=== PATIENT | female | born 1970 | race Hispanic/Latino ===

== ENCOUNTER 2020-04-09 18:43 | Inpatient (IN) | payer SELFPAY ==
[~2020-04-09] VITALS: Ht 167.6 cm; Wt 98.7 kg
--- NOTE | 2020-04-09 19:50 | Emergency Department Note ---
History of Present Illnes History of Present Illness Chief Complaint: General Medicine Complaints History of Present Illness This is a 49 year old female brought by EMS for anxiety. Patient requested a shot for "something". 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 Any updates have been documented here. Past Medical History Recent Fever: Yes Clinical Suspicion of Infectio: Yes New/Unexplained Change in Ment: No Past Medical History: Anxiety Social History Smoking Cessation: Never Smoker Alcohol Use: None Any Illegal Drug Use: No Review of Systems Review of Systems Constitutional: Reports malaise EENTM: Reports no symptoms Cardiovascular: Reports no symptoms Respiratory: Reports dyspnea Gastrointestinal: Reports no symptoms Genitourinary: Reports no symptoms Musculoskeletal: Reports no symptoms Integumentary: Reports no symptoms Neurological: Reports no symptoms Psychological: Reports no symptoms Endocrine: Reports no symptoms Hematological/Lymphatic: Reports no symptoms Physical Exam Related Data Allergies: Coded Allergies: No Known Allergies (Unverified , 04/09/20) Triage Vital Signs Vital Signs Date Time Temp Pulse Resp B/P (MAP) Pulse Ox O2 Delivery O2 Flow Rate FiO2 04/09/20 18:46 97.4 102 16 158/63 96 Room Air Vital signs reviewed: Yes Physical Exam CONSTITUTIONAL Constitutional: Present diaphoretic, Present ill appearing HENT HENT: Present normocephalic, Present atraumatic, Present oropharynx clear/moist, Present nose normal HENT L/R: Present left ext ear normal, Present right ext ear normal EYES Eyes: Reports PERRL, Reports conjunctivae normal NECK Neck: Present ROM normal PULMONARY Pulmonary: Present respiratory distress CARDIOVASCULAR Cardiovascular: Present heart sounds normal, Present tachycardia GASTROINTESTINAL Abdominal: Present soft, Present nontender, Present bowel sounds normal GENITOURINARY Genitourinary: Present exam deferred SKIN Skin: Present warm, Present dry MUSCULOSKELETAL Musculoskeletal: Present ROM normal NEUROLOGICAL Neurological: Present alert, Present oriented x 3, Present no gross motor or sensory deficits PSYCHOLOGICAL Psychological: Present mood/affect normal, Present judgement normal Results Laboratory Lab results reviewed: Yes Laboratory comments Laboratory Tests Test 04/10/20 03:50 04/10/20 00:35 04/10/20 00:15 04/09/20 23:55 Urine Color Yellow (YELLOW) Urine Clarity Sl cloudy (CLEAR) Urine pH 6 (5 - 7) Urine Specific Hamilton 1.025 (1.010-1.025) Urine Protein 2+ (NEGATIVE) Urine Glucose (UA) 2+ (NEGATIVE) Urine Ketones 3+ (NEGATIVE) Urine Blood Trace (NEGATIVE) Urine Nitrite Negative (NEGATIVE) Urine Bilirubin 1+ (NEGATIVE) Urine Urobilinogen 0.2 mg/dL (0.2 - 1) Urine Leukocyte Esterase Negative (NEGATIVE) Urine RBC 11-20 /HPF (0-5) Urine WBC 11-20 /HPF (0-5) Urine Epithelial Cells Few /LPF (NONE) Urine Bacteria Many /HPF (NONE) Urine Hyaline Casts 2-5 (0-1) Urine Coarse Granular Casts 1-5 (0) Urine Yeast Moderate (NONE) Lactic Acid Level 1.2 mmol/L (0.5-2.0) Urine Test Negative (NEGATIVE) Urine Opiates Screen Negative (NEGATIVE) Urine Methadone Screen Negative (NEGATIVE) Urine Barbiturates Screen Negative (NEGATIVE) Urine Phencyclidine Screen Negative (NEGATIVE) Urine Amphetamines Screen Negative (NEGATIVE) Urine Methamphetamines Screen Negative (NEGATIVE) Urine Benzodiazepines Screen Negative (NEGATIVE) Urine Cocaine Screen Negative (NEGATIVE) Urine Cannabinoids Screen Negative (NEGATIVE) Venous Blood pH 7.337 (7.35-7.38) Venous Blood Partial Pressure CO2 37.5 (44-48) Venous Blood Partial Pressure O2 21 (40-41) Venous Blood HCO3 20.1 (21-22) Venous Blood Oxygen Saturation 31 Venous Blood Base Excess -6 FiO2 36 % Test 04/09/20 22:50 White Blood Count 7.68 x10e3/uL (4.8-10.8) Red Blood Count 5.10 x10e6/uL (3.6-5.1) Hemoglobin 14.6 g/dL (12.0-16.0) Hematocrit 44.9 % (34.2-44.1) Mean Corpuscular Volume 88.0 fL (81-99) Mean Corpuscular Hemoglobin 28.6 pg (28-32) Mean Corpuscular Hemoglobin Concent 32.5 g/dL (31-35) Red Cell Distribution Width 13.0 % (11.7-14.4) Platelet Count 265 x10e3/uL (140-360) Neutrophils (%) (Auto) 79.9 % (38.7-80.0) Lymphocytes (%) (Auto) 14.7 % (18.0-39.1) Monocytes (%) (Auto) 4.6 % (4.4-11.3) Eosinophils (%) (Auto) 0.0 % (0.0-6.0) Basophils (%) (Auto) 0.1 % (0.0-1.0) Neutrophils # (Auto) 6.1 (2.1-6.9) Lymphocytes # (Auto) 1.1 (1.0-3.2) Monocytes # (Auto) 0.4 (0.2-0.8) Eosinophils # (Auto) 0.0 (0.0-0.4) Basophils # (Auto) 0.0 (0.0-0.1) Absolute Immature Granulocyte (auto 0.05 x10e3/uL (0-0.1) Sodium Level 137 mmol/L (136-145) Potassium Level 4.2 mmol/L (3.5-5.1) Chloride Level 101 mmol/L (98-107) Carbon Dioxide Level 19 mmol/L (22-29) Anion Gap 21.2 mmol/L (8-16) Blood Urea Nitrogen 9 mg/dL (7-26) Creatinine 0.82 mg/dL (0.57-1.11) Estimat Glomerular Filtration Rate > 60 ML/MIN (60-) BUN/Creatinine Ratio 11 (6-25) Glucose Level 286 mg/dL (74-118) Lactic Acid Level 2.4 mmol/L (0.5-2.0) Calcium Level 9.3 mg/dL (8.4-10.2) Total Bilirubin 0.3 mg/dL (0.2-1.2) Aspartate Amino Transf (AST/SGOT) 36 IU/L (5-34) Alanine Aminotransferase (ALT/SGPT) 32 IU/L (0-55) Alkaline Phosphatase 79 IU/L (40-150) Creatine Kinase 62 IU/L (29-168) Creatine Kinase MB 0.20 ng/mL (0-5.0) Troponin I 0.001 ng/mL (0-0.300) B-Type Natriuretic Peptide 10.9 pg/mL (0-100) Total Protein 7.8 g/dL (6.5-8.1) Albumin 2.8 g/dL (3.5-5.0) Globulin 5.0 g/dL (2.3-3.5) Albumin/Globulin Ratio 0.6 (0.8-2.0) Imaging Imaging results reviewed: Yes Impressions [place] [id number] Patient Name: MARCELO YOUNG MR #: [id number] 41 : 1970 Age/Sex: 49/F Req #: [id number] Adm Physician: Ordered by: BRYCE NEWMAN DO Report #: [id number] Location: ER Room/Bed: Procedure: [id number] DX/CHEST SINGLE (PORTABLE) Exam Date: 04/09/20 Exam Time: 2310 REPORT STATUS: Signed EXAMINATION: CHEST SINGLE (PORTABLE) INDICATION: Anxiety attack COMPARISON: None FINDINGS: TUBES and LINES: None. LUNGS: Normal lung volumes. Bilateral infrahilar/lower lung haziness. Mild central bronchial wall thickening. PLEURA: No pleural effusion or pneumothorax. HEART AND MEDIASTINUM: The cardiomediastinal silhouette is unremarkable. BONES AND SOFT TISSUES: No acute osseous lesion. Soft tissues are unremarkable. UPPER ABDOMEN: No free air under the diaphragm. IMPRESSION: Findings of bronchitis. Bilateral lower lung haziness is concerning for multifocal pneumonia, possibly viral. 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: Interpreted by ED physician Date: Apr 09, 2020 Time: 22:14 Prior ECG tracings: reviewed Rhythm: sinus tachycardia Rate: tachycardia BPM: 111 QRS axis: normal ST segments normal: Yes T waves normal: Yes Pacin% capture Clinical Impression: abnormal ECG Critical Care Time Total Critical Care Time (min): 31 Critcal care necessary due to: respiratory failure Critcal care time spent by me: develop tx plan w patient/surrogate, evaluation patient response to tx, examination of patient, order/perform tx or interve ntions, order/review laboratory studies, pulse oximetry, re-evaluation of patient condition Assessment & Plan Medical Decision Making MDM 49 yof presents with CP . ACS, PE, costocondritis, Chest wall pain, and pneumothorax, pneumonia and COVID-19 infectoin considered. labs, imaging, and EKG reviewed Assessment & Plan Final Impression: (1) Upper respiratory tract infection due to COVID-19 virus (2) Hypoxia Depart Disposition: ADMITTED Last Vital Signs Date Time Temp Pulse Resp B/P (MAP) Pulse Ox O2 Delivery O2 Flow Rate FiO2 04/09/20 18:46 97.4 102 16 158/63 96 Room Air Home Meds No Active Prescriptions or Reported Meds Medications in the ED Aspirin 81 mg PRN ONCE PO ; Start 04/09/20 at 22:15; Stop 04/09/20 at 22:23; Status DC Acetaminophen 975 mg ONCE STAT PO Last administered on 04/09/20at 22:35; Admin Dose 975 MG; Start 04/09/20 at 22:16; Stop 04/09/20 at 22:23; Status DC Piperacillin Sod/ Tazobactam Sod 50 ml @ 50 mls/hr Q6H IV Last administered on 04/10/20at 06:14; Admin Dose 50 MLS/HR; Start 04/10/20 at 00:00; Stop 04/10/20 at 08:06; Status DC Azithromycin 250 ml @ 200 mls/hr NOW ONCE IV Last administered on 04/10/20at 09:00; Admin Dose 200 MLS/HR; Start 04/10/20 at 07:30; Stop 04/10/20 at 08:44; Status DC Methylprednisolone Sodium Succinate 125 mg ONCE ONCE IV Last administered on 04/10/20at 09:00; Admin Dose 125 MG; Start 04/10/20 at 07:30; Stop 04/10/20 at 07:31; Status DC Albuterol RQ2H PRN INH SHORTNESS OF BREATH; Start 04/10/20 at 07:30; Stop 05/10/20 at 07:29; Status Cancel BRYCE NEWMAN DO Apr 09, 2020 19:50
[2020-04-09] MEDS ORDERED: ASPIRIN 81 MG CHEW TAB PO ONE (22:15)
[2020-04-09] MEDS: ACETAMINOPHEN 325 MG TAB PO STA ×2 (22:25→22:35)
[2020-04-09] MEDS: SODIUM CHLORIDE 0.9% 1000ML 1,000 ML IV STA ×2 (22:30→22:35)
[2020-04-09 23:22] LABS: BASOPHILS % 0.1 % (0.0-1.0); HEMATOCRIT 44.9 % (34.2-44.1); HEMOGLOBIN 14.6 g/dL (12.0-16.0); LYMPHOCYTES # (AUTO) 1.1 (1.0-3.2); LYMPHOCYTES % 14.7 % (18.0-39.1); MEAN CORPUSCULAR HEMOGLOBIN 28.6 pg (28-32); MEAN CORPUSCULAR HGB CONC 32.5 g/dL (31-35); MONOCYTES # (AUTO) 0.4 (0.2-0.8); MONOCYTES % 4.6 % (4.4-11.3); NEUTROPHILS # (AUTO) 6.1 (2.1-6.9); NEUTROPHILS % 79.9 % (38.7-80.0); PLATELET COUNT 265 x10e3/uL (140-360)
[2020-04-09] MEDS: PIPER-TAZ 3.375 GM 50 ML IV SCH (23:33)
[2020-04-09 23:43] LABS: ALANINE AMINOTRANSFERASE 32 IU/L (0-55); ALBUMIN 2.8 g/dL (3.5-5.0); ALBUMIN/GLOBULIN RATIO 0.6 (0.8-2.0); ALKALINE PHOSPHATASE 79 IU/L (40-150); ANION GAP 21.2 mmol/L (8-16); BLOOD UREA NITROGEN 9 mg/dL (7-26); BUN/CREATININE RATIO 11 (6-25); CALCIUM 9.3 mg/dL (8.4-10.2); CARBON DIOXIDE 19 mmol/L (22-29); CHLORIDE 101 mmol/L (98-107); CREATINE KINASE 62 IU/L (29-168); CREATININE, SERUM 0.82 mg/dL (0.57-1.11); EST GLOMERULAR FILTRATION RATE > 60 ML/MIN (60-); GLUCOSE 286 mg/dL (74-118); POTASSIUM 4.2 mmol/L (3.5-5.1); SODIUM 137 mmol/L (136-145)
[2020-04-10 00:45] LABS: PHENCYCLIDINE SCREEN,URINE NEGATIVE (NEGATIVE)
[2020-04-10 00:46] LABS: AMPHETAMINES SCREEN,URINE NEGATIVE (NEGATIVE); BENZODIAZEPINES SCREEN,URINE NEGATIVE (NEGATIVE); PREGNANCY TEST, URINE NEGATIVE (NEGATIVE)
--- NOTE | 2020-04-10 00:56 | Diagnostic Imaging Report ---
EXAMINATION: CHEST SINGLE (PORTABLE) INDICATION: Anxiety attack COMPARISON: None FINDINGS: TUBES and LINES: None. LUNGS: Normal lung volumes. Bilateral infrahilar/lower lung haziness. Mild central bronchial wall thickening. PLEURA: No pleural effusion or pneumothorax. HEART AND MEDIASTINUM: The cardiomediastinal silhouette is unremarkable. BONES AND SOFT TISSUES: No acute osseous lesion. Soft tissues are unremarkable. UPPER ABDOMEN: No free air under the diaphragm. IMPRESSION: Findings of bronchitis. Bilateral lower lung haziness is concerning for multifocal pneumonia, possibly viral. Signed by: Jorge Luis Dorman DO on 04/10/2020 12:52 AM
[2020-04-10 03:59] LABS: CLARITY,URINE SL CLOUDY (CLEAR); COLOR,URINE YELLOW (YELLOW); LEUKOCYTE ESTERASE ,URINE NEGATIVE (NEGATIVE); NITRITE,URINE NEGATIVE (NEGATIVE); PROTEIN,URINE DIPSTICK 2+ (NEGATIVE)
[2020-04-10 04:00] LABS: BILIRUBIN,URINE 1+ (NEGATIVE); KETONES,URINE 3+ (NEGATIVE); URINE UROBILINOGEN 0.2 mg/dL (0.2 - 1)
[2020-04-10 04:23] LABS: BACTERIA,URINE MANY /HPF; EPITHELIAL CELLS,URINE FEW /LPF
[2020-04-10 04:24] LABS: YEAST,URINE MODERATE
[2020-04-10] MEDS: PIPER-TAZ 3.375 GM 50 ML IV SCH (06:14)
[2020-04-10] MEDS ORDERED: AZITHROMYCIN 500MG/NS 250 ML 250 ML IV ONE (07:30)
[2020-04-10] MEDS ORDERED: METHYLPREDNISOLONE SOD SUCC 125 MG/2ML VIAL IV ONE (07:30)
[2020-04-10] MEDS ORDERED: ALBUTEROL SULFATE HFA 8GM INHALATION AEROSOL INH PRN ×2 (07:30→07:45)
[2020-04-10] MEDS ORDERED: CEFTRIAXONE SOD 1 GRAM/0.9% SOD CHL 50ML BAG IV SCH (07:45)
[2020-04-10] MEDS ORDERED: ASPIRIN 81 MG CHEW TAB PO ONE (07:45)
[2020-04-10] MEDS ORDERED: AZITHROMYCIN 500MG/SOD CHL 0.9% 250ML BAG IV SCH (07:45)
[2020-04-10] MEDS ORDERED: ACETAMINOPHEN 325 MG TAB PO ONE (07:45)
--- NOTE | 2020-04-10 08:37 | NUR ---
CHECKED WITH MD, PT TO BE PLACED ON VAPO THERM. CALLED RESPIRATORY FOR ORDER OF VAPO THERM STAT. HAD MAORI SPEAKING STAFF TALK WITH PT FOR UPDATE AND EVAL INFORMATION. PT PLACED ON WAFFLE
--- NOTE | 2020-04-10 08:46 | NUR ---
RESP RATE 44, BEING PLACED ON VAPO THERM
[2020-04-10] MEDS: SODIUM CHLORIDE 0.9% 1000ML 1,000 ML IV SCH ×3 (09:00→20:40)
[2020-04-10] MEDS: ALBUTEROL SULFATE HFA 8GM INHALATION AEROSOL INH SCH ×3 (09:00→19:55)
[2020-04-10] MEDS: CEFTRIAXONE SOD 1 GM/NS 50 ML 50 ML IV SCH (09:00)
[2020-04-10 10:24] LABS: CREATINE KINASE MB 0.3 ng/mL (0-5.0)
[2020-04-10] MEDS ORDERED: CEFTRIAXONE SOD 1 GM VIAL ONE (11:02)
[2020-04-10] MEDS ORDERED: ASPIRIN 81 MG ENTERIC COATED PO ONE (11:02)
[2020-04-10] MEDS ORDERED: METHYLPREDNISOLONE SOD SUCC 125 MG/2ML VIAL ONE (11:03)
[2020-04-10] MEDS ORDERED: IPRATROPIUM BROMIDE INHALER 12.9 GM INH INH SCH (13:00)
--- NOTE | 2020-04-10 15:33 | Consultation ---
DATE OF CONSULTATION: Pulmonary Critical Care consultation. CHIEF COMPLAINT: Dyspnea and fevers. HISTORY OF PRESENT ILLNESS: The patient is a 49-year-old woman. She denies any past medical history. She has no prior history of asthma or cardiac problems. She reports being sick for about 11 days. She had some fevers. She also notes worsening dyspnea and cough. She complains of pain in her chest, varies with inspiration. She does not complain of nausea or vomiting. PAST SURGICAL HISTORY: Status post . PAST MEDICAL HISTORY: 1. History of pneumonia 20 years ago. 2. The patient denies any prior history of asthma or diabetes or heart disease. SOCIAL HISTORY: The patient has never been a smoker. She is not a drinker. ALLERGIES: THERE ARE NO KNOWN DRUG ALLERGIES. REVIEW OF SYSTEMS: The patient reports some fever. She has no headache. She does have some cough. She has chest pain with inspiration. She notes dyspnea. She has no abdominal pain. She has no nausea or vomiting. She has no leg edema. PHYSICAL EXAMINATION: VITAL SIGNS: The patient is afebrile. The blood pressure is 124/78, saturation is now 96% on a Vapotherm with 30 L of flow and 100% FiO2. HEENT: Shows no facial swelling or erythema. CARDIAC: Reveals regular rhythm with normal S1, S2. LUNGS: Auscultation of lungs reveals crackles at the bases. There is no wheezing. ABDOMEN: Soft and nontender. There is no rebound or guarding. EXTREMITIES: Shows no leg edema or calf tenderness. There is no cyanosis or clubbing. SKIN: Shows no rashes. NEUROLOGICAL: Shows no focal abnormalities. LABORATORY DATA: White blood cell count is 7.68, and hemoglobin is 14.6, the platelet count is 265. BUN to creatinine ratio is 9 to 0.82 and the carbon dioxide is 19 with an anion gap of 21. Albumin is 2.8. RADIOGRAPHIC DATA: Chest x-ray shows bibasilar infiltrates. IMPRESSION: 1. Acute respiratory failure. 2. Viral pneumonia, probable COVID-19 infection. 3. Metabolic acidosis with increased anion gap. PLAN: 1. Continue Vapotherm. 2. Rocephin and Zithromax. 3. Await COVID results and blood culture results. 4. Stat repeat CBC and CMP. 5. Stat ABG. 6. DVT prophylaxis. MD FAROOQ Swain/TAMIA /[id number]
[2020-04-10] MEDS ORDERED: ACETAMINOPHEN 325 MG TAB ONE (16:03)
[2020-04-10 16:28] LABS: ABG HCO3 16 mmol/L (22-26); ABG PCO2 25 mmHg (35-45); ABG PH 7.42 (7.35-7.45); ABG PO2 81 mmHg (80-105)
[2020-04-10 16:29] LABS: BASOPHILS % 0.2 % (0.0-1.0); HEMATOCRIT 41.6 % (34.2-44.1); HEMOGLOBIN 13.5 g/dL (12.0-16.0); LYMPHOCYTES # (AUTO) 0.6 (1.0-3.2); LYMPHOCYTES % 10.6 % (18.0-39.1); MEAN CORPUSCULAR HEMOGLOBIN 28.5 pg (28-32); MEAN CORPUSCULAR HGB CONC 32.5 g/dL (31-35); MEAN CORPUSCULAR VOLUME 87.8 fL (81-99); MONOCYTES # (AUTO) 0.1 (0.2-0.8); NEUTROPHILS # (AUTO) 4.8 (2.1-6.9); NEUTROPHILS % 86.8 % (38.7-80.0); PLATELET COUNT 272 x10e3/uL (140-360); RED BLOOD COUNT 4.74 x10e6/uL (3.6-5.1); RED CELL DISTRIBUTION WIDTH 13.1 % (11.7-14.4)
[2020-04-10 16:51] LABS: ALANINE AMINOTRANSFERASE 56 IU/L (0-55); ALBUMIN 2.5 g/dL (3.5-5.0); ALBUMIN/GLOBULIN RATIO 0.5 (0.8-2.0); ALKALINE PHOSPHATASE 74 IU/L (40-150); BLOOD UREA NITROGEN 8 mg/dL (7-26); BUN/CREATININE RATIO 12 (6-25); CALCIUM 8.9 mg/dL (8.4-10.2); CARBON DIOXIDE 18 mmol/L (22-29); CHLORIDE 103 mmol/L (98-107); CREATININE, SERUM 0.65 mg/dL (0.57-1.11); EST GLOMERULAR FILTRATION RATE > 60 ML/MIN (60-); GLUCOSE 272 mg/dL (74-118); SODIUM 135 mmol/L (136-145)
[2020-04-10 16:57] LABS: CREATINE KINASE MB 0.3 ng/mL (0-5.0)
[2020-04-10] MEDS ORDERED: ENOXAPARIN SOD INJ 40 MG/0.4 ML SYR SC SCH (17:00)
[2020-04-10] MEDS ORDERED: ONDANSETRON HCL INJ 2MG/ML 2ML 2 MG/ML VIAL IV PRN (17:15)
[2020-04-10] MEDS ORDERED: METOPROLOL TARTRATE INJ 1 MG/ML VIAL IV PRN (17:15)
--- NOTE | 2020-04-10 17:51 | NUR ---
CONSULTATION The patient is a 49-year-old woman. She denies any past medical history. She has no prior history of asthma or cardiac problems. She reports being sick for about 11 days. She had some fevers. She also notes worsening dyspnea and cough. She complains of pain in her chest, varies with inspiration. She does not complain of nausea or vomiting. PAST SURGICAL HISTORY: Status post . PAST MEDICAL HISTORY: 1. History of pneumonia 20 years ago. 2. The patient denies any prior history of asthma or diabetes or heart disease. SOCIAL HISTORY: The patient has never been a smoker. She is not a drinker. ALLERGIES: THERE ARE NO KNOWN DRUG ALLERGIES. MPRESSION: Findings of bronchitis. Bilateral lower lung haziness is concerning for multifocal pneumonia, possibly viral. [id number]
[2020-04-10] MEDS ORDERED: ACETAMINOPHEN 325 MG TAB PO NR (19:15)
--- NOTE | 2020-04-10 20:41 | NUR ---
report called to sukumar matta in [facility].
[2020-04-10 21:00] VITALS: BP 149/105
[2020-04-10] MEDS ORDERED: DEXAMETHASONE 10MG/ML PF INJ IV SCH (21:00)
--- NOTE | 2020-04-10 21:03 | Consultation ---
DATE OF CONSULTATION: REASON FOR CONSULTATION: Fever, chills, and pneumonia. HISTORY OF PRESENT ILLNESS: This is a 49-year-old female, who comes in with shortness of breath and cough. The patient has been sick at least 11 days, comes into the emergency room with shortness of breath. PAST MEDICAL HISTORY: The patient denies any past medical history. She had pneumonia 20 years ago. Denies diabetes or asthma. PAST SURGICAL HISTORY: . ALLERGIES: NKA. SOCIAL HISTORY: There is no smoking, drug abuse, or alcohol abuse. FAMILY HISTORY: Unremarkable. LABORATORY DATA: When she first came, her white count was 5.57, hemoglobin 13, hematocrit 41. Sodium 135, potassium 4.0 with creatinine 0.65. Her COVID-19 is still pending. Chest x-ray showed bronchitis, bilateral long haziness, concerning for pneumonia. PHYSICAL EXAMINATION: GENERAL: Currently alert, oriented, does not seem in acute distress. She is on a high-flow 30 L. VITAL SIGNS: Stable, currently afebrile. HEENT: She is not icteric. NECK: Supple. CHEST: Clear. ABDOMEN: Soft. IMPRESSION: Pneumonia, concerned about coronavirus disease 2019. Continue oxygen, Rocephin 1 g daily for 5 days, azithromycin 500 mg daily for 3 days, Lovenox 0.5 mg/kg q.12 hours. Vitamin C, vitamin D, and zinc. Decadron 6 mg daily for 10 days. MD MAXIMILIAN Black/TAMIA /[id number]
[2020-04-10 21:53] LABS: LYMPHOCYTES % (MANUAL) 11 % (19-48); MONOCYTES % (MANUAL) 3 % (3.4-9.0); NEUTROPHILS % (MANUAL) 86 % (40-74); PLATELET ESTIMATE ADEQUATE; PLATELET MORPHOLOGY COMMENT NORMAL; RBC MORPHOLOGY COMMENT NORMAL
[2020-04-10 22:00] VITALS: BP 142/89
[2020-04-10 23:00] VITALS: BP 153/85
[2020-04-10 23:59] VITALS: BP 130/76
[2020-04-11] VITALS (24 sets, daily range): BP systolic 108–159; BP diastolic 69–107
[2020-04-11 05:00] LABS: HEMATOCRIT 37.1 % (34.2-44.1); HEMOGLOBIN 11.9 g/dL (12.0-16.0); LYMPHOCYTES # (AUTO) 0.9 (1.0-3.2); LYMPHOCYTES % 21.4 % (18.0-39.1); MEAN CORPUSCULAR HGB CONC 32.1 g/dL (31-35); MEAN CORPUSCULAR VOLUME 90.3 fL (81-99); MONOCYTES # (AUTO) 0.3 (0.2-0.8); MONOCYTES % 6.5 % (4.4-11.3); NEUTROPHILS % 71.4 % (38.7-80.0); PLATELET COUNT 252 x10e3/uL (140-360); RED BLOOD COUNT 4.11 x10e6/uL (3.6-5.1)
[2020-04-11 05:20] LABS: ALANINE AMINOTRANSFERASE 81 IU/L (0-55); ALBUMIN 1.8 g/dL (3.5-5.0); ALBUMIN/GLOBULIN RATIO 0.5 (0.8-2.0); ALKALINE PHOSPHATASE 58 IU/L (40-150); ANION GAP 13.6 mmol/L (8-16); BLOOD UREA NITROGEN 8 mg/dL (7-26); BUN/CREATININE RATIO 15 (6-25); CARBON DIOXIDE 14 mmol/L (22-29); CHLORIDE 115 mmol/L (98-107); CREATININE, SERUM 0.52 mg/dL (0.57-1.11); EST GLOMERULAR FILTRATION RATE > 60 ML/MIN (60-); GLUCOSE 226 mg/dL (74-118); POTASSIUM 3.6 mmol/L (3.5-5.1); SODIUM 139 mmol/L (136-145)
[2020-04-11 05:22] LABS: CALCIUM 6.8 mg/dL (8.4-10.2)
--- NOTE | 2020-04-11 07:29 | NUR ---
Pt Calcium is 6.8, Dr Montoya ordered ionized Ca to be drawn. report given to onccarey LIMON
[2020-04-11] MEDS: FAMOTIDINE 20 MG TAB PO SCH ×2 (08:23→17:11)
[2020-04-11] MEDS: AZITHROMYCIN 500MG/NS 250 ML 250 ML IV SCH (08:24)
[2020-04-11] MEDS: SODIUM CHLORIDE 0.9% 1000ML 1,000 ML IV SCH (08:24)
--- NOTE | 2020-04-11 08:51 | Diagnostic Imaging Report ---
Examination: Single AP view of the chest. COMPARISON: 04/09/2020 INDICATION: Pneumonia DISCUSSION: Lungs remain well-inflated. Interval worsening of hazy bilateral lower lung opacities even when accounting for differences in technique. No pleural effusion or pneumothorax. Stable cardiomediastinal contour. No acute osseous abnormality. IMPRESSION: Slight interval increase in hazy bilateral lower lung zone airspace opacities concerning for multifocal pneumonia. Signed by: Dr. Blaine Argueta M.D. on 04/11/2020 8:48 AM
[2020-04-11] MEDS ORDERED: DEXTROSE 50% SYRINGE 50 ML IV PRN (09:30)
[2020-04-11] MEDS ORDERED: PROMETHAZINE 12.5MG/ NACL 0.9% 12.5 MG/50 ML BAG IV ONE (09:30)
[2020-04-11] MEDS: CEFTRIAXONE SOD 1 GM/NS 50 ML 50 ML IV SCH (09:55)
[2020-04-11] MEDS: ASCORBIC ACID 500 MG TAB PO SCH ×2 (09:55→17:11)
[2020-04-11] MEDS: ZINC SULFATE 220 MG CAP PO SCH ×2 (09:55→17:11)
[2020-04-11] MEDS: ENOXAPARIN SOD INJ 40 MG/0.4 ML SYR SC SCH ×2 (10:02→21:18)
--- NOTE | 2020-04-11 10:05 | Progress Note ---
DATE: Pulmonary Critical Care Progress Note SUBJECTIVE: The patient remains on Vapotherm at 80% with 40 L. She complains of nausea and decreased appetite. She received Zofran with minimal benefit. She also complains of lower back pain. She says she cannot lie in the prone position because of her lower back pain. PHYSICAL EXAMINATION: VITAL SIGNS: The patient is afebrile. The blood pressure is 159/92, saturation is 97%. HEENT: No facial swelling or erythema. CARDIAC: Regular rate and rhythm with normal S1, S2. LUNGS: Auscultation of lungs reveals crackles at the bases. There is no wheezing. ABDOMEN: Soft, nontender. There is no rebound or guarding. EXTREMITIES: No leg edema or calf tenderness. There is no cyanosis or clubbing. SKIN: No rashes. NEUROLOGICAL: No focal abnormalities. LABORATORY DATA: BUN to creatinine ratio is normal. The carbon dioxide is 14 and other electrolytes are within normal limits. The glucose is 226. Albumin is 1.8. White blood cell count is 4.15 and hemoglobin is 11.9. The platelet count is 252. RADIOGRAPHIC DATA: Chest x-ray shows slightly worsening of bilateral infiltrates. IMPRESSION: 1. Acute respiratory failure. 2. Coronavirus disease-19 infection and viral pneumonia. 3. Non-anion gap metabolic acidosis. 4. Lower back pain. 5. Hyperglycemia. PLAN: 1. Continue Vapotherm. 2. Continue antibiotics. 3. Monitor and control blood sugars. 4. Low-dose Phenergan x1 and continue Zofran. 5. Stop normal saline because of increasing hyperchloremia. 6. Hemoglobin A1c. 7. Lovenox. 8. Dexamethasone. Case discussed with Respiratory, nursing, patient, Internal Medicine, and administration. Greater than 35 minutes in direct critical care time. Yakov Montoya MD LM/TAMIA /[id number]
[2020-04-11 10:11] LABS: LYMPHOCYTES % (MANUAL) 21 % (19-48); MONOCYTES % (MANUAL) 5 % (3.4-9.0); NEUTROPHILS % (MANUAL) 74 % (40-74)
[2020-04-11 10:12] LABS: PLATELET ESTIMATE ADEQUATE; PLATELET MORPHOLOGY COMMENT RARE EDTA CLUMPING; RBC MORPHOLOGY COMMENT NORMAL
[2020-04-11] MEDS ORDERED: DEXMEDETOMIDINE 200MCG/NS 50ML 50 ML IV PRN (10:45)
--- NOTE | 2020-04-11 11:08 | NUR ---
GAVE NURSE PACKET TO GIVE TO PT NEXT TIME ENTERS ROOM FOR INFORMATION WITH COMMUNITY RESOURCES FOR ASSISTANCE WITH LOW TO NO INCOME TO PATIENT. RESOURCES THAT PATIENT MAY BE ABLE TO FOLLOW UP UPON DISCHARGE. PT EDUCATED ON EACH RESOURCE AND UNDERSTANDING HOW TO FOLLOW UP TO SEE IF QUALIFIED FOR EACH RESOURCE.
[2020-04-11] MEDS: INSULIN REGULAR, HUMAN 100 UNIT/1 ML 3ML VIAL SQ SCH ×3 (12:25→21:00)
[2020-04-11] MEDS: ALBUTEROL SULFATE HFA 8GM INHALATION AEROSOL INH SCH ×2 (13:00→19:00)
--- NOTE | 2020-04-11 16:26 | Progress Note ---
DATE: SUBJECTIVE: Ms. Almaraz is lying in bed comfortably. The patient . The patient has been sick for 11 days. PHYSICAL EXAMINATION: GENERAL: Alert. VITAL SIGNS: Stable. Afebrile. HEENT: She is not icteric. NECK: Supple. CHEST: Clear. ABDOMEN: Soft. IMPRESSION: COVID-19, respiratory failure. The patient would benefit from remdesivir. We will continue antibiotic Rocephin 5 days, azithromycin 3 days. If nausea get worse, we will discontinue azithromycin. Decadron for 10 days. Oxygen as needed. MD MAXIMILIAN Black/MODL /[id number]
[2020-04-11] MEDS ORDERED: DEXAMETHASONE 10MG/ML PF INJ IV SCH (17:00)
[2020-04-11] MEDS: DEXAMETHASONE PHOS 4MG/ML 6 MG in SODIUM CHLORIDE 0.9% 50ML 50 ML IV SCH (17:11)
[2020-04-12] VITALS (25 sets, daily range): BP systolic 106–136; BP diastolic 65–89
[2020-04-12] MEDS: ALBUTEROL SULFATE HFA 8GM INHALATION AEROSOL INH SCH ×3 (01:00→19:00)
[2020-04-12 05:46] LABS: HEMATOCRIT 40.2 % (34.2-44.1); HEMOGLOBIN 13.5 g/dL (12.0-16.0); LYMPHOCYTES # (AUTO) 1.1 (1.0-3.2); LYMPHOCYTES % 22.9 % (18.0-39.1); MEAN CORPUSCULAR HEMOGLOBIN 29.7 pg (28-32); MEAN CORPUSCULAR HGB CONC 33.6 g/dL (31-35); MEAN CORPUSCULAR VOLUME 88.5 fL (81-99); MONOCYTES # (AUTO) 0.3 (0.2-0.8); MONOCYTES % 7.3 % (4.4-11.3); NEUTROPHILS # (AUTO) 3.2 (2.1-6.9); NEUTROPHILS % 68.9 % (38.7-80.0); PLATELET COUNT 322 x10e3/uL (140-360); RED BLOOD COUNT 4.54 x10e6/uL (3.6-5.1); RED CELL DISTRIBUTION WIDTH 13.1 % (11.7-14.4)
[2020-04-12 06:02] LABS: ALANINE AMINOTRANSFERASE 83 IU/L (0-55); ALBUMIN 2.2 g/dL (3.5-5.0); ALBUMIN/GLOBULIN RATIO 0.6 (0.8-2.0); ALKALINE PHOSPHATASE 69 IU/L (40-150); ANION GAP 14.7 mmol/L (8-16); BLOOD UREA NITROGEN 10 mg/dL (7-26); BUN/CREATININE RATIO 19 (6-25); CARBON DIOXIDE 20 mmol/L (22-29); CHLORIDE 106 mmol/L (98-107); CREATININE, SERUM 0.53 mg/dL (0.57-1.11); EST GLOMERULAR FILTRATION RATE > 60 ML/MIN (60-); GLUCOSE 269 mg/dL (74-118); POTASSIUM 3.7 mmol/L (3.5-5.1); SODIUM 137 mmol/L (136-145)
[2020-04-12] MEDS: INSULIN REGULAR, HUMAN 100 UNIT/1 ML 3ML VIAL SQ SCH ×4 (08:14→21:08)
[2020-04-12] MEDS: AZITHROMYCIN 500MG/NS 250 ML 250 ML IV SCH (08:27)
[2020-04-12] MEDS: FAMOTIDINE 20 MG TAB PO SCH ×2 (08:27→16:20)
--- NOTE | 2020-04-12 08:32 | Diagnostic Imaging Report ---
X-ray chest AP portable Comparison: 04/11/2020 History: Covid Findings: Central airways unremarkable. Heart size normal. Bilateral lung opacities, most pronounced in the mid and lower lung zones have slightly improved. There is no pleural effusion. There is no pneumothorax. No acute changes in the visualized skeleton and upper abdomen. Impression: Slight improvement in the aeration of both lungs. Signed by: Josh Harrington MD on 04/12/2020 8:28 AM
[2020-04-12] MEDS: ZINC SULFATE 220 MG CAP PO SCH ×2 (08:35→16:20)
[2020-04-12] MEDS: ASCORBIC ACID 500 MG TAB PO SCH ×2 (08:35→16:20)
[2020-04-12] MEDS: ENOXAPARIN SOD INJ 40 MG/0.4 ML SYR SC SCH ×2 (08:35→21:05)
[2020-04-12] MEDS: ACETAMINOPHEN 325 MG TAB PO PRN (08:37)
[2020-04-12] MEDS: CEFTRIAXONE SOD 1 GM/NS 50 ML 50 ML IV SCH (09:27)
--- NOTE | 2020-04-12 09:40 | Operative Report ---
MD RAMSEY Swain /[id number] MTDNat
[2020-04-12] MEDS: GUAIFENESIN/CODEINE 10 ML CUP PO PRN ×2 (11:08→17:24)
[2020-04-12 13:25] LABS: ABG PH 7.44 (7.35-7.45)
[2020-04-12 13:26] LABS: ABG HCO3 22 mmol/L (22-26); ABG PCO2 32 mmHg (35-45); ABG PO2 102 mmHg (80-105)
[2020-04-12] MEDS ORDERED: ALBUMIN 25% 25GM 100ML 0.25 GM/ML BTL IV SCH (14:00)
[2020-04-12] MEDS: ALBUMIN 25% 25GM 100ML 100 ML IV SCH ×2 (14:42→22:04)
[2020-04-12] MEDS: DEXMEDETOMIDINE 200MCG/NS 50ML 50 ML IV PRN (14:43)
[2020-04-12] MEDS: DEXAMETHASONE PHOS 4MG/ML 6 MG in SODIUM CHLORIDE 0.9% 50ML 50 ML IV SCH (16:20)
--- NOTE | 2020-04-12 16:41 | Progress Note ---
DATE: SUBJECTIVE: The patient was in the intensive care unit. OBJECTIVE: VITAL SIGNS: Stable, afebrile. HEENT: Not icteric. NECK: Supple. CHEST: Crackles. LABORATORY DATA: White count 4.6 and hemoglobin 12.5. IMPRESSION: COVID-19, respiratory failure. Continue dexamethasone. Continue Rocephin for 5 days. Continue Lovenox. Continue azithromycin for 3 days. Continue supportive care. Not a candidate for remdesivir since the patient has been sick for more than 11 days. MD MAXIMILIAN Black/MODL /[id number]
--- NOTE | 2020-04-12 18:49 | NUR ---
Daughter has come in and signed DNAR paperwork and is requesting extubation. Dr Montoya present, has ordered the extubation and medications for comfort prn. Dr montoya has clarified to give the morphine with the hydromorphone causing itching allergy. Have spoken with respiratory who will come as soon as available.
[2020-04-12] MEDS: ONDANSETRON HCL INJ 2MG/ML 2ML 2 MG/ML VIAL IV PRN (20:25)
--- NOTE | 2020-04-12 20:27 | Progress Note ---
DATE: Pulmonary Critical Care Progress Note SUBJECTIVE: The patient is still on Vapotherm at 70% with 40 L. She is sleeping. She cannot tolerate the prone position because of back pain. PHYSICAL EXAMINATION: VITAL SIGNS: The patient is afebrile. The blood pressure is 128/75. HEENT: Shows no facial swelling or erythema. CARDIAC: Reveals regular rate and rhythm with normal S1 and S2. LUNGS: Auscultation of lungs reveals rhonchorous breath sounds bilaterally. There is no wheezing. ABDOMEN: Soft and nontender. There is no rebound or guarding. EXTREMITIES: Shows no leg edema or calf tenderness. There is no cyanosis or clubbing. SKIN: Shows no rashes. NEUROLOGICAL: Shows no focal abnormalities. LABORATORY DATA: BUN to creatinine ratio is normal. Other electrolytes are within normal limits. Blood sugars in the 250-300 range. IMPRESSION: 1. Acute respiratory failure. 2. Coronavirus disease-19. 3. infection and viral pneumonia. 4. Lower back pain. 5. Hyperglycemia. PLAN: 1. Continue Vapotherm. 2. Complete dexamethasone. 3. Complete antibiotics. 4. Monitor and control blood sugars. Yakov Montoya MD [facility]/MODL /[id number]
[2020-04-13] VITALS (26 sets, daily range): BP systolic 97–163; BP diastolic 47–104
[2020-04-13] MEDS: ALBUTEROL SULFATE HFA 8GM INHALATION AEROSOL INH SCH ×3 (01:00→13:00)
[2020-04-13] MEDS: GUAIFENESIN/CODEINE 10 ML CUP PO PRN (03:00)
--- NOTE | 2020-04-13 03:53 | Progress Note ---
DATE: 04/12/2020 CONSULTING PHYSICIANS: 1. Yakov Montoya MD. 2. Anika Dumont MD. SUBJECTIVE: The patient is lying supine in bed per nursing. The patient may be confused as she is convinced that no one has told her that she has COVID. The patient remains in droplet isolation. Has had nausea with poor appetite in general. She has been unable to lie prone due to the low back pain. OBJECTIVE: VITAL SIGNS: Temperature 97.5, T-max 99.2, heart rate 58, blood pressure 128/89, respirations 30, oxygen saturation 98%. Intake and output, 970 mL in and 2575 mL out. GENERAL: Supine. LUNGS: With bibasilar crackles. Diminished. Currently on Vapotherm 40 L/minute, FiO2 of 70%, oxygen saturation 94% at the time of encounter. HEENT: EOMI. NECK: Supple. CARDIOVASCULAR: Regular rate and rhythm. No murmur. ABDOMEN: Bowel sounds positive. Soft and nontender. Moise catheter with dark regina urine. EXTREMITIES: With no clubbing, cyanosis, or edema. No signs or symptoms of DVT. NEUROLOGICAL: GCS 15. Nonfocal. Sedated with Precedex drip. LABORATORY DATA: WBC 4.63, hemoglobin 13.5, hematocrit 40.2, platelets 322. ABG; pH 7.44, pCO2 32, PO2 102, HC03 22, SaO2 98%. Base excess -2. FiO2 of 70%. Sodium 137, potassium 3.7, chloride 106, CO2 of 20, anion gap 14.7, BUN 10 and creatinine 0.53, estimated GFR greater than 60, glucose 269. Fingerstick blood glucose levels 274, 284. Hemoglobin A1c 12.7%, calcium 8, total bilirubin 0.3, AST 56, ALT 83, alkaline phosphatase 69, total protein 6.2, albumin 2.2. On 04/09, coronavirus PCR detected. On 04/10, blood cultures x2, preliminary report shows no growth after 48 hours. Imaging chest x-ray, slight improvement in the aeration of both lungs. ASSESSMENT AND PLAN: 1. Acute respiratory failure. Wean Vapotherm as tolerated. 2. Viral multifocal community-acquired pneumonia, POA, due to COVID-19. Continue azithromycin/Rocephin, Solu-Medrol, Lovenox, albuterol nebs, vitamin C and D, zinc sulfate, Robitussin with codeine. 3. Non-anion gap metabolic acidosis, improved. Serum CO2 40 (14, 18). 4. Transaminitis, improving. Monitor LFTs. 5. Low back pain. Pain control. Unable to prone. 6. Prophylaxis. Lovenox and Pepcid. Time spent 35 minutes. [id number]. Dictated by Obi Cordova, OSEAS Mesfin Ruiz MD [facility]/MODL /[id number]
[2020-04-13] MEDS: DEXMEDETOMIDINE 200MCG/NS 50ML 50 ML IV PRN ×2 (05:13→18:44)
[2020-04-13 05:23] LABS: EOSINOPHILS # (AUTO) 0.1 (0.0-0.4); HEMATOCRIT 37.3 % (34.2-44.1); HEMOGLOBIN 12.4 g/dL (12.0-16.0); LYMPHOCYTES # (AUTO) 1.7 (1.0-3.2); LYMPHOCYTES % 28.2 % (18.0-39.1); MEAN CORPUSCULAR HEMOGLOBIN 29.2 pg (28-32); MEAN CORPUSCULAR HGB CONC 33.2 g/dL (31-35); MONOCYTES # (AUTO) 0.5 (0.2-0.8); MONOCYTES % 7.8 % (4.4-11.3); NEUTROPHILS # (AUTO) 3.8 (2.1-6.9); NEUTROPHILS % 62.5 % (38.7-80.0); PLATELET COUNT 288 x10e3/uL (140-360); RED BLOOD COUNT 4.24 x10e6/uL (3.6-5.1); RED CELL DISTRIBUTION WIDTH 12.6 % (11.7-14.4)
[2020-04-13 05:32] LABS: ALANINE AMINOTRANSFERASE 56 IU/L (0-55); ALBUMIN 3.1 g/dL (3.5-5.0); ALBUMIN/GLOBULIN RATIO 0.9 (0.8-2.0); ALKALINE PHOSPHATASE 62 IU/L (40-150); ANION GAP 12.3 mmol/L (8-16); BLOOD UREA NITROGEN 9 mg/dL (7-26); BUN/CREATININE RATIO 15 (6-25); CALCIUM 8.8 mg/dL (8.4-10.2); CARBON DIOXIDE 27 mmol/L (22-29); CHLORIDE 102 mmol/L (98-107); CREATININE, SERUM 0.61 mg/dL (0.57-1.11); EST GLOMERULAR FILTRATION RATE > 60 ML/MIN (60-); GLUCOSE 192 mg/dL (74-118); POTASSIUM 3.3 mmol/L (3.5-5.1); SODIUM 138 mmol/L (136-145)
[2020-04-13] MEDS: FAMOTIDINE 20 MG TAB PO SCH ×2 (07:28→17:55)
[2020-04-13] MEDS: INSULIN REGULAR, HUMAN 100 UNIT/1 ML 3ML VIAL SQ SCH ×4 (07:30→21:00)
[2020-04-13] MEDS: AZITHROMYCIN 500MG/NS 250 ML 250 ML IV SCH (07:59)
[2020-04-13] MEDS: ASCORBIC ACID 500 MG TAB PO SCH ×2 (08:00→17:55)
[2020-04-13] MEDS: ZINC SULFATE 220 MG CAP PO SCH ×2 (08:00→17:00)
[2020-04-13] MEDS: CEFTRIAXONE SOD 1 GM/NS 50 ML 50 ML IV SCH (08:00)
[2020-04-13] MEDS: ENOXAPARIN SOD INJ 40 MG/0.4 ML SYR SC SCH ×2 (08:00→21:09)
--- NOTE | 2020-04-13 08:21 | Diagnostic Imaging Report ---
X-ray chest AP portable Comparison: 04/12/2020 History: Covid positive Findings: There is interval worsening of right mid and lower lung, left midlung and upper lung infiltrates. No other changes. Impression: As above. Signed by: Josh Harrington MD on 04/13/2020 8:17 AM
--- NOTE | 2020-04-13 16:21 | Progress Note ---
DATE: SUBJECTIVE: Ms. Almaraz is currently in intensive care unit, confused, but no new problems. OBJECTIVE: VITAL SIGNS: Stable, afebrile. HEENT: She is not icteric. NECK: Supple. CHEST: A few crackles. HEART: S1, S2. No murmurs. ABDOMEN: Soft. Bowel sounds present. EXTREMITIES: No edema. SKIN: No rash. The patient is on Vapotherm. IMPRESSION: Coronavirus disease-19 acute respiratory failure. Continue as ordered. Discussed with Internal Medicine. Discussed with Critical Care. This is day #2. We will follow. MD MAXIMILIAN Black/TAMIA /[id number]
[2020-04-13] MEDS: DEXAMETHASONE PHOS 4MG/ML 6 MG in SODIUM CHLORIDE 0.9% 50ML 50 ML IV SCH (17:55)
[2020-04-13] MEDS ORDERED: POTASSIUM CHLORIDE 20 MEQ TAB CR PO STA (18:53)
--- NOTE | 2020-04-13 19:24 | NUR ---
Dr. Magaly Montoya gave orders for PICC line and informed of low potassium, orders given to replace once picc line placed and confirmed. Dr. Magaly montoya informed of poor appetite.
[2020-04-13] MEDS ORDERED: LACTATED RINGER'S 1,000 ML INJ ONE (19:30)
[2020-04-13] MEDS ORDERED: POTASSIUM CHLORIDE 20MEQ/100ML 100 ML IV ONE (19:30)
--- NOTE | 2020-04-13 19:31 | Progress Note ---
DATE: SUBJECTIVE: The patient complains of burning in her throat. She is thirsty. She has decreased appetite and fatigue. She is on a Vapotherm at 40 L with 100% FiO2. She is breathing in low 30s. PHYSICAL EXAMINATION: VITAL SIGNS: The blood pressure is 131/78 and the saturation is 94%. She is on Vapotherm. HEENT: Shows no facial swelling or erythema. CARDIAC: Reveals regular rate and rhythm with normal S1 and S2. LUNGS: Auscultation of lungs reveals rhonchorous breath sounds bilaterally. There is no wheezing. ABDOMEN: Soft and nontender. There is no rebound or guarding. EXTREMITIES: Shows no leg edema or calf tenderness. There is no cyanosis or clubbing. SKIN: Shows no rashes. NEUROLOGICAL: Shows no focal abnormalities. IMPRESSION: 1. Acute respiratory failure. 2. Viral pneumonia and COVID-19 infection. 3. Low back pain. 4. Hyperglycemia. 5. Hypokalemia. 6. Chest pain. PLAN: 1. Continue antibiotics and dexamethasone. 2. Continue Vapotherm. 3. Place the patient in prone position. 4. Continue to monitor and control blood sugars. 5. Echocardiogram, EKG and Cardiology evaluation. Yakov Montoya MD [facility]/TAMIA /[id number]
[2020-04-13] MEDS: CEPACOL SORE THROAT LOZENGES PO PRN (22:28)
[2020-04-14] VITALS (25 sets, daily range): BP systolic 107–165; BP diastolic 63–94
[2020-04-14] MEDS: DEXMEDETOMIDINE 200MCG/NS 50ML 50 ML IV PRN ×3 (00:48→15:53)
--- NOTE | 2020-04-14 04:32 | Diagnostic Imaging Report ---
EXAMINATION: CHEST XRAY LINE PLACEMENT INDICATION: PICC line placement, verify position COMPARISON: Chest x-ray 04/13/2020 554 FINDINGS: TUBES and LINES: New Left upper extremity PICC tip terminates at the cavoatrial junction. LUNGS: Normal lung volumes. Extensive bilateral multifocal airspace haziness PLEURA: No pleural effusion or pneumothorax. HEART AND MEDIASTINUM: The cardiomediastinal silhouette is unremarkable. BONES AND SOFT TISSUES: No acute osseous lesion. Soft tissues are unremarkable. UPPER ABDOMEN: No free air under the diaphragm. IMPRESSION: Extensive multifocal airspace disease/pneumonia. New Left upper extremity PICC tip terminates at the cavoatrial junction. Signed by: Jorge Luis Dorman DO on 04/14/2020 4:28 AM
--- NOTE | 2020-04-14 04:48 | Progress Note ---
DATE: 04/13/2020 SUBJECTIVE: The patient lying supine in bed. Remains in droplet isolation. She had a PICC line placed. Overall, she has nausea with poor appetite. She has been unable to lie prone due to low back pain. OBJECTIVE: VITAL SIGNS: Temperature 99.2, heart rate 86, blood pressure 130/77, respirations 27, oxygen saturation 94%. Currently, on Vapotherm 40 L/minute with FiO2 of 70%. GENERAL: Supine. LUNGS: Diminished with bibasilar crackles. Continue Vapotherm and attempt to wean high-flow nasal cannula as tolerated. HEENT: EOMI. NECK: Supple. CARDIOVASCULAR: Regular rate and rhythm without murmur. ABDOMEN: Bowel sounds positive. Soft, nontender, obese. Moise catheter with dark regina urine. EXTREMITIES: Without pitting edema. No clubbing, cyanosis, edema, or signs of DVT. NEUROLOGICAL: GCS 15. Nonfocal. LABORATORY DATA: WBC 6.02, hemoglobin 12.4, hematocrit 37.3, platelets 288. Fingerstick blood glucose levels 188, 215, 229. Chest x-ray negative. ASSESSMENT AND PLAN: 1. Acute respiratory failure. Wean Vapotherm to high-flow nasal cannula as tolerated. 2. Viral multifocal community-acquired pneumonia, POA, due to COVID-19. Continue Solu-Medrol, azithromycin/Rocephin, Lovenox, albuterol nebs, vitamin C and D, zinc sulfate, Robitussin with codeine. 3. Non-anion gap metabolic acidosis, improved. 4. Transaminitis, improving. Monitor LFTs. 5. Low back pain. Pain control. Unable to prone. Dictated by Obi Cordova NP Mesfin Ruiz MD [facility]/MODL /[id number]
[2020-04-14 05:07] LABS: HEMATOCRIT 41.3 % (34.2-44.1); HEMOGLOBIN 13.5 g/dL (12.0-16.0); LYMPHOCYTES # (AUTO) 0.7 (1.0-3.2); LYMPHOCYTES % 19.2 % (18.0-39.1); MEAN CORPUSCULAR HEMOGLOBIN 28.5 pg (28-32); MEAN CORPUSCULAR HGB CONC 32.7 g/dL (31-35); MEAN CORPUSCULAR VOLUME 87.3 fL (81-99); MONOCYTES # (AUTO) 0.2 (0.2-0.8); MONOCYTES % 6.1 % (4.4-11.3); NEUTROPHILS # (AUTO) 2.6 (2.1-6.9); NEUTROPHILS % 73.3 % (38.7-80.0); PLATELET COUNT 322 x10e3/uL (140-360); RED BLOOD COUNT 4.73 x10e6/uL (3.6-5.1); RED CELL DISTRIBUTION WIDTH 12.3 % (11.7-14.4)
[2020-04-14 05:17] LABS: ALANINE AMINOTRANSFERASE 48 IU/L (0-55); ALBUMIN 2.9 g/dL (3.5-5.0); ALBUMIN/GLOBULIN RATIO 0.7 (0.8-2.0); ALKALINE PHOSPHATASE 65 IU/L (40-150); ANION GAP 16.9 mmol/L (8-16); BLOOD UREA NITROGEN 7 mg/dL (7-26); BUN/CREATININE RATIO 12 (6-25); CALCIUM 9.7 mg/dL (8.4-10.2); CARBON DIOXIDE 24 mmol/L (22-29); CHLORIDE 102 mmol/L (98-107); CREATININE, SERUM 0.57 mg/dL (0.57-1.11); EST GLOMERULAR FILTRATION RATE > 60 ML/MIN (60-); GLUCOSE 253 mg/dL (74-118); POTASSIUM 3.9 mmol/L (3.5-5.1); SODIUM 139 mmol/L (136-145)
[2020-04-14 05:44] LABS: MAGNESIUM 1.9 MG/DL (1.3-2.1); PHOSPHORUS 4.1 MG/DL (2.3-4.7)
[2020-04-14] MEDS ORDERED: LACTATED RINGER'S 1,000 ML ONE (05:50)
[2020-04-14] MEDS: LACTATED RINGER'S 1,000 ML INJ SCH ×2 (06:27→15:52)
[2020-04-14 08:21] LABS: BAND NEUTROPHILS % (MANUAL) 2 %; LYMPHOCYTES % (MANUAL) 17 % (19-48); MONOCYTES % (MANUAL) 5 % (3.4-9.0); NEUTROPHILS % (MANUAL) 76 % (40-74)
[2020-04-14] MEDS: FAMOTIDINE 20 MG TAB PO SCH ×2 (08:35→18:37)
[2020-04-14] MEDS: INSULIN REGULAR, HUMAN 100 UNIT/1 ML 3ML VIAL SQ SCH ×4 (08:36→21:19)
[2020-04-14] MEDS: AZITHROMYCIN 500MG/NS 250 ML 250 ML IV SCH (08:36)
[2020-04-14] MEDS: ZINC SULFATE 220 MG CAP PO SCH ×2 (08:37→17:00)
[2020-04-14] MEDS: ASCORBIC ACID 500 MG TAB PO SCH ×2 (08:37→17:00)
[2020-04-14] MEDS: ENOXAPARIN SOD INJ 40 MG/0.4 ML SYR SC SCH ×2 (08:38→20:51)
[2020-04-14] MEDS: CEFTRIAXONE SOD 1 GM/NS 50 ML 50 ML IV SCH (08:38)
--- NOTE | 2020-04-14 08:52 | Diagnostic Imaging Report ---
EXAMINATION: CHEST SINGLE (PORTABLE) INDICATION: resp failure COMPARISON: Chest x-ray 04/14/2020 and 1:46 AM FINDINGS: TUBES and LINES: Left upper extremity PICC tip terminates at the cavoatrial junction. LUNGS/PLEURA: Normal lung volumes. Extensive bilateral multifocal airspace haziness, unchanged. Bibasilar opacity which could be due to atelectasis and effusion. HEART AND MEDIASTINUM: Cardiac size is mildly enlarged. BONES AND SOFT TISSUES: No acute osseous lesion. Soft tissues are unremarkable. UPPER ABDOMEN: No free air under the diaphragm. IMPRESSION: Unchanged bilateral airspace opacities which could be due to multifocal pneumonia, ARDS or pulmonary edema. Signed by: Jose Beckford MD on 04/14/2020 8:49 AM
--- NOTE | 2020-04-14 09:09 | Consultation ---
DATE OF CONSULTATION: Cardiology Consultation CHIEF COMPLAINT: The patient is a 49-year-old with respiratory failure. HISTORY OF PRESENT ILLNESS: The patient is a 49-year-old female, who came to the emergency room after being sick for about 11 days with fevers. She was having worsening dyspnea and cough, and she subsequently developed worsening respiratory status and respiratory failure requiring intubation. PAST MEDICAL HISTORY: Significant for pneumonia 20 years ago and previous . MEDICATIONS: The patient was not on medications at home. SOCIAL HISTORY: The patient does not drink and does not smoke. She lives independently. FAMILY HISTORY: There is a family history of hypertension. PHYSICAL EXAMINATION: GENERAL: The patient is currently now back on the nasal cannula. VITAL SIGNS: Temperature was 98.2, pulse was 59, blood pressure 152/91. HEAD, EARS, EYES, NOSE, AND THROAT: Normocephalic and atraumatic. Extraocular muscles intact. NECK: Supple. No jugular venous distention. CHEST: Demonstrated rhonchi and some rales bilaterally. CARDIAC: Demonstrated normal S1 and S2 with a short 2/6 systolic murmur. ABDOMEN: Demonstrated good bowel sounds. No tenderness and no masses. EXTREMITIES: No clubbing, no cyanosis, and no edema. NEUROLOGIC: The patient was awake and somewhat oriented. The patient was moving all extremities. DIAGNOSTIC DATA: The patient's EKG demonstrated sinus bradycardia with no acute changes. The patient's echocardiogram demonstrated normal left ventricular size and function with an ejection fraction of 60%. CONCLUSION: The patient has a viral pneumonia and COVID-19 infection with some respiratory distress. The patient has normal left ventricular size and function on her echocardiogram and I do not feel there is a significant cardiac component to her dyspnea. MD ISAAC NewsomeH/MODL /[id number]
[2020-04-14] MEDS: HYDRALAZINE HCL 20 MG/ML VIAL IV PRN (11:52)
--- NOTE | 2020-04-14 15:05 | Progress Note ---
DATE: SUBJECTIVE: The patient remains on Vapotherm at 40 L with 70%. She is now in the prone position. PHYSICAL EXAMINATION: VITAL SIGNS: The patient is afebrile. The blood pressure is 125/81, saturation is 92%, and heart rate is 70. HEENT: Shows no facial swelling or erythema. CARDIAC: Reveals regular rate and rhythm with normal S1, S2. LUNGS: Auscultation of lungs reveals rhonchorous breath sounds bilaterally. ABDOMEN: Soft, nontender. There is no rebound or guarding. EXTREMITIES: Shows no leg edema or calf tenderness. LABORATORY DATA: White blood cell count is 3.6, hemoglobin is 13.5. The platelet count is 322. BUN to creatinine ratio is normal. The glucose is 223. RADIOGRAPHIC DATA: Chest x-ray shows bilateral infiltrates. IMPRESSION: 1. Acute respiratory failure. 2. Viral pneumonia and COVID-19 infection. 3. Atypical chest pain. 4. Elevated blood sugars. PLAN: 1. Continue Vapotherm with ventilation in the prone position. 2. Continue antibiotics. 3. Lovenox. 4. Complete Decadron. Yakov Montoya MD [facility]/MODL /[id number]
[2020-04-14] MEDS: DEXAMETHASONE PHOS 4MG/ML 6 MG in SODIUM CHLORIDE 0.9% 50ML 50 ML IV SCH (17:00)
[2020-04-14] MEDS: ALBUTEROL SULFATE HFA 8GM INHALATION AEROSOL INH SCH (17:20)
--- NOTE | 2020-04-14 19:01 | NUR ---
Patient desaturating 88-90% encouraged to self prone, at 1400 pt agreed, tolerating well. Saturation improved, up to 99%. No po medications were given and pt missed pm meal. Tray in the room, pt will be able to eat once respiratory status has improved. Medicated X 1 with PRN Hydralalizine for elevated BP with good results.
[2020-04-14] MEDS: PANTOPRAZOLE 40 MG 10ML VIAL IV SCH (20:51)
[2020-04-14] MEDS: ACETAMINOPHEN 325 MG TAB PO PRN (21:02)
[2020-04-15] VITALS (24 sets, daily range): BP systolic 115–155; BP diastolic 65–96
[2020-04-15] MEDS: LACTATED RINGER'S 1,000 ML INJ SCH ×2 (03:22→12:02)
[2020-04-15] MEDS: DEXMEDETOMIDINE 200MCG/NS 50ML 50 ML IV PRN ×2 (03:25→12:51)
[2020-04-15 05:42] LABS: BASOPHILS % 0.2 % (0.0-1.0); EOSINOPHILS % 0.5 % (0.0-6.0); HEMATOCRIT 40.1 % (34.2-44.1); HEMOGLOBIN 13.4 g/dL (12.0-16.0); LYMPHOCYTES # (AUTO) 0.7 (1.0-3.2); LYMPHOCYTES % 17.1 % (18.0-39.1); MEAN CORPUSCULAR HEMOGLOBIN 29.3 pg (28-32); MEAN CORPUSCULAR HGB CONC 33.4 g/dL (31-35); MEAN CORPUSCULAR VOLUME 87.6 fL (81-99); MONOCYTES # (AUTO) 0.3 (0.2-0.8); MONOCYTES % 6.8 % (4.4-11.3); NEUTROPHILS # (AUTO) 3.1 (2.1-6.9); NEUTROPHILS % 74.4 % (38.7-80.0); PLATELET COUNT 354 x10e3/uL (140-360); RED BLOOD COUNT 4.58 x10e6/uL (3.6-5.1); RED CELL DISTRIBUTION WIDTH 12.5 % (11.7-14.4)
[2020-04-15 06:28] LABS: ANION GAP 12.9 mmol/L (8-16); BLOOD UREA NITROGEN 8 mg/dL (7-26); BUN/CREATININE RATIO 15 (6-25); CALCIUM 9.4 mg/dL (8.4-10.2); CARBON DIOXIDE 27 mmol/L (22-29); CHLORIDE 103 mmol/L (98-107); CREATININE, SERUM 0.55 mg/dL (0.57-1.11); EST GLOMERULAR FILTRATION RATE > 60 ML/MIN (60-); GLUCOSE 248 mg/dL (74-118); POTASSIUM 3.9 mmol/L (3.5-5.1); SODIUM 139 mmol/L (136-145)
[2020-04-15] MEDS: ALBUTEROL SULFATE HFA 8GM INHALATION AEROSOL INH SCH ×3 (08:10→22:00)
[2020-04-15] MEDS: INSULIN REGULAR, HUMAN 100 UNIT/1 ML 3ML VIAL SQ SCH ×4 (08:14→20:09)
[2020-04-15] MEDS: AZITHROMYCIN 500MG/NS 250 ML 250 ML IV SCH (08:18)
[2020-04-15] MEDS: FAMOTIDINE 20 MG TAB PO SCH ×2 (08:18→17:41)
[2020-04-15] MEDS: ENOXAPARIN SOD INJ 40 MG/0.4 ML SYR SC SCH ×2 (08:19→19:57)
[2020-04-15] MEDS: ASCORBIC ACID 500 MG TAB PO SCH ×2 (08:19→17:00)
[2020-04-15] MEDS: CEFTRIAXONE SOD 1 GM/NS 50 ML 50 ML IV SCH (08:19)
[2020-04-15] MEDS: ZINC SULFATE 220 MG CAP PO SCH ×2 (08:19→17:00)
--- NOTE | 2020-04-15 12:03 | NUR ---
pt sats wnl but c/o difficulty breathing. assisted into prone position. refused insulin since didnt eat breakfast and not eating lunch at this time
[2020-04-15] MEDS: PANTOPRAZOLE 40 MG 10ML VIAL IV SCH (17:41)
[2020-04-15] MEDS: DEXAMETHASONE PHOS 4MG/ML 6 MG in SODIUM CHLORIDE 0.9% 50ML 50 ML IV SCH (17:45)
[2020-04-15] MEDS: ACETAMINOPHEN 325 MG TAB PO PRN (17:48)
[2020-04-15] MEDS: CEPACOL SORE THROAT LOZENGES PO PRN (17:48)
[2020-04-15] MEDS ORDERED: KETOROLAC TROMETHAMINE 30 MG/ML VIAL IV NR (18:30)
[2020-04-15] MEDS: ZOLPIDEM TARTRATE 5 MG TAB PO SCH (19:57)
--- NOTE | 2020-04-15 20:10 | Progress Note ---
DATE: SUBJECTIVE: The patient complains of some pain in her lower abdomen and back. She also complains of headache. She is on Vapotherm at 35 L with 70%. PHYSICAL EXAMINATION: VITAL SIGNS: The blood pressure is 138/78, saturation is 98%. Respiratory rate is 18. HEENT: Shows no facial swelling or erythema. CARDIAC: Reveals regular rate and rhythm with a normal S1 and S2. LUNGS: Auscultation of lungs reveals crackles and rhonchi in both lung lynne. There is no wheezing. ABDOMEN: Soft and nontender. There is no rebound or guarding. EXTREMITIES: Shows no leg edema or calf tenderness. There is no cyanosis or clubbing. SKIN: Shows no rashes. LABORATORY DATA: CBC is within normal limits. BUN to creatinine is normal. Other electrolytes are within normal limits. IMPRESSION: 1. Acute respiratory failure. 2. COVID-19 and viral pneumonia. PLAN: 1. Complete dexamethasone. 2. Continue Vapotherm and wean as tolerated. 3. Continue Precedex. 4. Toradol x1 for pain. 5. Continue to monitor and control blood sugars. Yakov Montoya MD [facility]/MODL /[id number]
[2020-04-16] VITALS (25 sets, daily range): BP systolic 90–170; BP diastolic 57–99
[2020-04-16] MEDS: ALBUTEROL SULFATE HFA 8GM INHALATION AEROSOL INH SCH ×2 (02:00→21:13)
[2020-04-16] MEDS ORDERED: LACTATED RINGER'S 1,000 ML ONE (04:18)
[2020-04-16 04:52] LABS: BASOPHILS % 0.2 % (0.0-1.0); EOSINOPHILS # (AUTO) 0.2 (0.0-0.4); EOSINOPHILS % 3.5 % (0.0-6.0); HEMOGLOBIN 12.8 g/dL (12.0-16.0); LYMPHOCYTES # (AUTO) 1.2 (1.0-3.2); LYMPHOCYTES % 20.3 % (18.0-39.1); MEAN CORPUSCULAR HEMOGLOBIN 28.2 pg (28-32); MEAN CORPUSCULAR HGB CONC 32.8 g/dL (31-35); MEAN CORPUSCULAR VOLUME 85.9 fL (81-99); MONOCYTES # (AUTO) 0.5 (0.2-0.8); MONOCYTES % 8.2 % (4.4-11.3); NEUTROPHILS # (AUTO) 3.9 (2.1-6.9); NEUTROPHILS % 67.5 % (38.7-80.0); PLATELET COUNT 381 x10e3/uL (140-360); RED BLOOD COUNT 4.54 x10e6/uL (3.6-5.1); RED CELL DISTRIBUTION WIDTH 12.5 % (11.7-14.4)
[2020-04-16] MEDS: LACTATED RINGER'S 1,000 ML INJ SCH ×3 (04:57→20:38)
[2020-04-16 05:20] LABS: ALANINE AMINOTRANSFERASE 31 IU/L (0-55); ALBUMIN 2.4 g/dL (3.5-5.0); ALBUMIN/GLOBULIN RATIO 0.7 (0.8-2.0); ALKALINE PHOSPHATASE 49 IU/L (40-150); ANION GAP 12.3 mmol/L (8-16); BLOOD UREA NITROGEN 5 mg/dL (7-26); BUN/CREATININE RATIO 10 (6-25); CALCIUM 8.7 mg/dL (8.4-10.2); CARBON DIOXIDE 28 mmol/L (22-29); CHLORIDE 104 mmol/L (98-107); CREATININE, SERUM 0.51 mg/dL (0.57-1.11); EST GLOMERULAR FILTRATION RATE > 60 ML/MIN (60-); GLUCOSE 186 mg/dL (74-118); POTASSIUM 3.3 mmol/L (3.5-5.1); SODIUM 141 mmol/L (136-145)
[2020-04-16 05:48] LABS: MAGNESIUM 1.5 MG/DL (1.3-2.1); PHOSPHORUS 3.3 MG/DL (2.3-4.7)
[2020-04-16] MEDS: INSULIN REGULAR, HUMAN 100 UNIT/1 ML 3ML VIAL SQ SCH ×4 (07:30→20:33)
[2020-04-16] MEDS: ENOXAPARIN SOD INJ 40 MG/0.4 ML SYR SC SCH ×2 (09:00→10:11)
[2020-04-16] MEDS: ASCORBIC ACID 500 MG TAB PO SCH ×2 (09:00→10:11)
[2020-04-16] MEDS: ZINC SULFATE 220 MG CAP PO SCH ×2 (09:00→17:10)
[2020-04-16] MEDS: FAMOTIDINE 20 MG TAB PO SCH ×2 (09:18→17:10)
[2020-04-16] MEDS: CHOLECALCIFEROL 400 UNIT TAB PO SCH (09:19)
[2020-04-16] MEDS: ACETAMINOPHEN 325 MG TAB PO PRN (10:11)
[2020-04-16] MEDS: DEXMEDETOMIDINE 200MCG/NS 50ML 50 ML IV PRN ×3 (10:11→23:00)
--- NOTE | 2020-04-16 12:47 | Diagnostic Imaging Report ---
EXAMINATION: CHEST SINGLE (PORTABLE) INDICATION: Respiratory failure COMPARISON: Chest radiograph 04/14/2020 FINDINGS: LINES/TUBES:Left PICC line unchanged. EKG leads overlie the chest. LUNGS:The lungs are moderately inflated. Unchanged bilateral lower lung predominant patchy airspace opacities. PLEURA:Possible small left pleural effusion. No pneumothorax. MEDIASTINUM:The cardiomediastinal silhouette appears unchanged in size and shape. BONES/SOFT TISSUES:No acute osseous injury. ABDOMEN:No free air under the diaphragm. IMPRESSION: Unchanged bilateral lower lung predominant patchy airspace opacities consistent with pneumonia. Signed by: Diana Dill MD on 04/16/2020 12:43 PM
--- NOTE | 2020-04-16 16:49 | Progress Note ---
DATE: SUBJECTIVE: The patient remains in intensive care unit, has some abdominal discomfort. She is still having headache, but she is not intubated. She is still on high Vapotherm at 35/70%. She is on insulin. She is also on Lovenox. She is on dexamethasone. She is in a prone position at present time. The patient, who has been here for 5 days, currently off antibiotic. PHYSICAL EXAMINATION: GENERAL: Currently alert and oriented. VITAL SIGNS: Stable afebrile. HEENT: Not icteric. NECK: Supple. CHEST: Crackles. ABDOMEN: Soft and obese. LABORATORY DATA: Her white count 5.7 and hemoglobin 12. IMPRESSION: COVID-19 and obesity. Continue with supportive care as ordered. Currently in the prone position. Discussed with the medical team. MD MAXIMILIAN Black/TAMIA /[id number]
--- NOTE | 2020-04-16 16:59 | Progress Note ---
DATE: SUBJECTIVE: The patient still complains of some pain on the side. She is using less oxygen. She is down to 65% with 28 L. PHYSICAL EXAMINATION: VITAL SIGNS: Stable. HEENT: Shows no facial swelling or erythema. CARDIAC: Reveals regular rate and rhythm with normal S1 and S2. LUNGS: Auscultation of lungs reveals rhonchorous breath sounds bilaterally. There is no wheezing. ABDOMEN: Soft and nontender. There is no rebound or guarding. EXTREMITIES: Shows no leg edema or calf tenderness. There is no cyanosis or clubbing. SKIN: Shows no rashes. NEUROLOGICAL: Shows no focal abnormalities. LABORATORY DATA: BUN to creatinine ratio is normal. Other electrolytes are within normal limits. CBC is within normal limits. RADIOGRAPHIC DATA: Chest x-ray shows bilateral infiltrates. IMPRESSION: 1. Viral pneumonia and COVID-19 infection. 2. Abdominal pain, possibly suggestive of cholelithiasis. PLAN: 1. Continue to wean Vapotherm. 2. Precedex p.r.n. 3. Ultrasound of abdomen to rule out cholelithiasis. 4. Continue to monitor and control blood sugars. Yakov Montoya MD [facility]/MODL /[id number]
[2020-04-16] MEDS: PANTOPRAZOLE 40 MG 10ML VIAL IV SCH (17:10)
[2020-04-16] MEDS: DEXAMETHASONE SOD PHOS INJ 4 MG/ML VIAL IV SCH (17:10)
[2020-04-16] MEDS: ZOLPIDEM TARTRATE 5 MG TAB PO SCH (19:53)
--- NOTE | 2020-04-16 20:33 | Diagnostic Imaging Report ---
EXAM: Complete Abdominal Ultrasound INDICATION: Abdominal pain concerning for cholelithiasis. COMPARISON: None. TECHNIQUE: Transverse and longitudinal images of the upper abdomen were obtained. FINDINGS: Liver: Size: 16 cm in the right midclavicular line, upper limits of normal Appearance: Normal echogenicity, smooth contour Mass: No focal masses Spleen: Size: 10.4 cm in length, normal Echogenicity: Normal Mass: No focal masses Gallbladder: Stones/Sludge: None Wall: 0.2 cm Appearance: No pericholecystic fluid or hydrops. Sonographic Elkins's Sign: Negative Bile Ducts: Intrahepatic Ducts: No dilatation Extrahepatic Ducts: Common bile duct measures 0.12 cm, no dilatation Pancreas: Visualized portions of the pancreatic head, neck and proximal body are normal. Right Kidney: Size: 11 x 4.9 x 6.5 cm Echogenicity: Normal Parenchymal thickness: Normal Collecting System: No hydronephrosis Stone: None Cyst/Mass: None Left Kidney: Size: 13.6 x 5.9 x 5.6 cm Echogenicity: Normal Parenchymal thickness: Normal Collecting System: No hydronephrosis Stone: None Cyst/Mass: None Vessels: Aorta: Visualized portions are normal Inferior Vena Cava: Visualized portions are normal Main Portal Vein: 1.1 cm, normal size with hepatopetal flow. Free Fluid: No ascites or pleural effusion IMPRESSION: Normal abdominal ultrasound. Signed by: Jhonny Echevarria MD on 04/16/2020 8:30 PM
[2020-04-17] VITALS (20 sets, daily range): BP systolic 17–171; BP diastolic 72–94
[2020-04-17] MEDS: ALBUTEROL SULFATE HFA 8GM INHALATION AEROSOL INH SCH ×4 (01:22→19:00)
[2020-04-17] MEDS ORDERED: ALBUMIN 25% 25GM 100ML 0.25 GM/ML BTL IV ONE ×2 (01:30)
[2020-04-17] MEDS: KETOROLAC TROMETHAMINE 30 MG/ML VIAL IV PRN ×2 (03:49→14:30)
[2020-04-17] MEDS ORDERED: MAGNESIUM SULFATE 2GM/50ML 50 ML IV ONE (04:00)
[2020-04-17 04:48] LABS: HEMATOCRIT 39.5 % (34.2-44.1); HEMOGLOBIN 13.1 g/dL (12.0-16.0); LYMPHOCYTES # (AUTO) 0.7 (1.0-3.2); LYMPHOCYTES % 19.3 % (18.0-39.1); MEAN CORPUSCULAR HGB CONC 33.2 g/dL (31-35); MEAN CORPUSCULAR VOLUME 87.6 fL (81-99); MONOCYTES # (AUTO) 0.3 (0.2-0.8); MONOCYTES % 6.6 % (4.4-11.3); NEUTROPHILS # (AUTO) 2.8 (2.1-6.9); NEUTROPHILS % 73.6 % (38.7-80.0); PLATELET COUNT 363 x10e3/uL (140-360); RED BLOOD COUNT 4.51 x10e6/uL (3.6-5.1); RED CELL DISTRIBUTION WIDTH 12.4 % (11.7-14.4)
[2020-04-17 05:09] LABS: ALANINE AMINOTRANSFERASE 27 IU/L (0-55); ALBUMIN 2.5 g/dL (3.5-5.0); ALBUMIN/GLOBULIN RATIO 0.6 (0.8-2.0); ALKALINE PHOSPHATASE 57 IU/L (40-150); ANION GAP 15.8 mmol/L (8-16); BLOOD UREA NITROGEN < 5 mg/dL (7-26); CALCIUM 9.2 mg/dL (8.4-10.2); CARBON DIOXIDE 26 mmol/L (22-29); CHLORIDE 102 mmol/L (98-107); CREATININE, SERUM 0.54 mg/dL (0.57-1.11); EST GLOMERULAR FILTRATION RATE > 60 ML/MIN (60-); GLUCOSE 217 mg/dL (74-118); POTASSIUM 3.8 mmol/L (3.5-5.1); SODIUM 140 mmol/L (136-145)
[2020-04-17 05:21] LABS: BUN/CREATININE RATIO 9 (6-25)
[2020-04-17] MEDS ORDERED: POTASSIUM CHLORIDE 20MEQ/100ML 200 ML IV ONE (06:00)
[2020-04-17] MEDS: INSULIN REGULAR, HUMAN 100 UNIT/1 ML 3ML VIAL SQ SCH ×4 (07:30→21:10)
[2020-04-17] MEDS: CHOLECALCIFEROL 400 UNIT TAB PO SCH (09:00)
[2020-04-17] MEDS: ASCORBIC ACID 500 MG TAB PO SCH ×2 (09:00→17:19)
[2020-04-17] MEDS: ZINC SULFATE 220 MG CAP PO SCH ×2 (09:00→17:19)
[2020-04-17] MEDS: ENOXAPARIN SOD INJ 40 MG/0.4 ML SYR SC SCH (09:00)
[2020-04-17] MEDS: LACTATED RINGER'S 1,000 ML INJ SCH (10:30)
--- NOTE | 2020-04-17 13:29 | Progress Note ---
DATE: SUBJECTIVE: The patient had an abdominal ultrasound yesterday that showed no acute disease. She is requiring less liter flow on her Vapotherm and less oxygen. She is not complaining of abdominal pain. There is no nausea or vomiting. PHYSICAL EXAMINATION: VITAL SIGNS: Blood pressure is 142/85, saturation is 96%, and the liter flow is 20 with a FiO2 of 65%. HEENT: Shows no facial swelling or erythema. CARDIAC: Reveals regular rate and rhythm with normal S1 and S2. LUNGS: Auscultation of lungs reveals crackles at the bases. There is no wheezing. ABDOMEN: Soft and nontender. There is no rebound or guarding. EXTREMITIES: Shows no leg edema or calf tenderness. There is no cyanosis or clubbing. SKIN: Shows no rashes. LABORATORY DATA: The BUN to creatinine ratio is 5 to 0.54. Other electrolytes are within normal limits. Albumin is 2.5. CBC is within normal limits. IMPRESSION: 1. Acute respiratory failure. 2. Viral pneumonia and COVID-19 infection. 3. Abdominal pain of unclear etiology. PLAN: 1. Continue to wean Vapotherm. 2. Continue to monitor and control blood sugars. 3. Complete dexamethasone. 4. Precedex as needed. 5. Lovenox. Yakov Montoya MD [facility]/TAMIA /[id number]
[2020-04-17] MEDS ORDERED: CHLORASEPTIC SPRAY 177 ML BTL MM PRN (14:15)
--- NOTE | 2020-04-17 16:28 | NUR ---
Nutrition Screen Note RD Recommendation for Physician: - Continue current diet Plan of Care: RD following, monitoring for tolerance and adequacy Nutrition reason for involvement: LOS Primary Diagnose(s): multifocal pneumonia, covid-19 PMH: no PMH reported Ht: 66 in Wt: 217.5 lb BMI: 35.1 kg/m2 IBW: [address] Assessment: 04/17: 49 YOF admitted for PNA, found to be Covid+. Pt evaluated today per LOS. Unable to obtain hx from pt per current isolation precautions. No wt loss indicated on admit. Pt with fluctuating intake since admit, eating 100% of meals recently. Pt with complaints of abdominal pain, no N/V, and abdominal ultrasound showed "no evidence of disease" per MD notes. Pt on Vapotherm, self proning. Chart reviewed. Labs and meds noted, elevated Bg on Decadron. Will continue to monitor. Current Diet: 1800 ADA Malnutrition Evaluation (04/17/20) The patient does not meet criteria for a specified degree of malnutrition at this time. Will re-evaluate at follow-up as appropriate. Unable to assess per current isolation protocol policy. Diet Education Needs Assessment: Diet education not indicated at this time. Diet tolerance: tolerating Nutrition Care Level: low Signed: Alejandrina Tyler RD, LD, [facility]
[2020-04-17 17:36] LABS: ALANINE AMINOTRANSFERASE 29 IU/L (0-55); ALBUMIN 2.4 g/dL (3.5-5.0); ALBUMIN/GLOBULIN RATIO 0.6 (0.8-2.0); ALKALINE PHOSPHATASE 50 IU/L (40-150); ANION GAP 14.7 mmol/L (8-16); BLOOD UREA NITROGEN 8 mg/dL (7-26); BUN/CREATININE RATIO 15 (6-25); CALCIUM 8.9 mg/dL (8.4-10.2); CARBON DIOXIDE 25 mmol/L (22-29); CHLORIDE 103 mmol/L (98-107); CREATININE, SERUM 0.55 mg/dL (0.57-1.11); EST GLOMERULAR FILTRATION RATE > 60 ML/MIN (60-); GLUCOSE 246 mg/dL (74-118); MAGNESIUM 1.8 MG/DL (1.3-2.1); PHOSPHORUS 3.4 MG/DL (2.3-4.7); POTASSIUM 3.7 mmol/L (3.5-5.1); SODIUM 139 mmol/L (136-145)
[2020-04-17] MEDS: PANTOPRAZOLE 40 MG 10ML VIAL IV SCH (18:43)
[2020-04-17] MEDS: DEXAMETHASONE SOD PHOS INJ 4 MG/ML VIAL IV SCH (18:43)
[2020-04-17] MEDS: DEXMEDETOMIDINE 200MCG/NS 50ML 50 ML IV PRN (18:43)
--- NOTE | 2020-04-17 18:55 | Progress Note ---
DATE: SUBJECTIVE: The patient seems to be getting slightly better. Her ultrasound showed no acute finding of the abdomen. She is requiring less oxygen. She is on Vapotherm. PHYSICAL EXAMINATION: HEENT: Not icteric. NECK: Supple. CHEST: Clear. HEART: S1, S2. ABDOMEN: Soft and obese. EXTREMITIES: No edema. IMPRESSION: 1. Respiratory failure. 2. COVID-19. 3. Obesity. Continue as ordered. We will stop her Toradol, I am concerned about gastritis. Continue Decadron for 10 days. Lovenox is ordered, off antibiotics. We will follow. MD MAXIMILIAN Black/TAMIA /[id number]
[2020-04-17] MEDS: HYDRALAZINE HCL 20 MG/ML VIAL IV PRN (20:00)
[2020-04-17] MEDS: ZOLPIDEM TARTRATE 5 MG TAB PO SCH (21:09)
[2020-04-18] VITALS (24 sets, daily range): BP systolic 92–159; BP diastolic 55–91
[2020-04-18] MEDS: DEXMEDETOMIDINE 200MCG/NS 50ML 50 ML IV PRN ×5 (00:20→22:21)
[2020-04-18] MEDS: LACTATED RINGER'S 1,000 ML INJ SCH ×4 (00:52→22:35)
[2020-04-18] MEDS: ALBUTEROL SULFATE HFA 8GM INHALATION AEROSOL INH SCH ×4 (01:00→19:00)
[2020-04-18] MEDS: HYDRALAZINE HCL 20 MG/ML VIAL IV PRN (04:10)
[2020-04-18 05:21] LABS: BASOPHILS % 0.2 % (0.0-1.0); EOSINOPHILS % 0.6 % (0.0-6.0); HEMATOCRIT 38.1 % (34.2-44.1); HEMOGLOBIN 13.2 g/dL (12.0-16.0); LYMPHOCYTES # (AUTO) 0.9 (1.0-3.2); LYMPHOCYTES % 17.7 % (18.0-39.1); MEAN CORPUSCULAR HEMOGLOBIN 31.3 pg (28-32); MEAN CORPUSCULAR HGB CONC 34.6 g/dL (31-35); MEAN CORPUSCULAR VOLUME 90.3 fL (81-99); MONOCYTES # (AUTO) 0.3 (0.2-0.8); NEUTROPHILS # (AUTO) 3.6 (2.1-6.9); NEUTROPHILS % 74.1 % (38.7-80.0); PLATELET COUNT 293 x10e3/uL (140-360); RED BLOOD COUNT 4.22 x10e6/uL (3.6-5.1); RED CELL DISTRIBUTION WIDTH 14.2 % (11.7-14.4)
[2020-04-18 05:38] LABS: ALANINE AMINOTRANSFERASE 33 IU/L (0-55); ALBUMIN 2.5 g/dL (3.5-5.0); ALBUMIN/GLOBULIN RATIO 0.6 (0.8-2.0); ALKALINE PHOSPHATASE 54 IU/L (40-150); ANION GAP 11.2 mmol/L (8-16); BLOOD UREA NITROGEN 7 mg/dL (7-26); BUN/CREATININE RATIO 13 (6-25); CALCIUM 9.2 mg/dL (8.4-10.2); CARBON DIOXIDE 27 mmol/L (22-29); CHLORIDE 104 mmol/L (98-107); CREATININE, SERUM 0.55 mg/dL (0.57-1.11); EST GLOMERULAR FILTRATION RATE > 60 ML/MIN (60-); GLUCOSE 264 mg/dL (74-118); POTASSIUM 4.2 mmol/L (3.5-5.1); SODIUM 138 mmol/L (136-145)
[2020-04-18] MEDS: INSULIN REGULAR, HUMAN 100 UNIT/1 ML 3ML VIAL SQ SCH ×2 (07:30→12:50)
[2020-04-18] MEDS: ASCORBIC ACID 500 MG TAB PO SCH ×2 (10:40→16:55)
[2020-04-18] MEDS: CHOLECALCIFEROL 400 UNIT TAB PO SCH (10:41)
[2020-04-18] MEDS: ZINC SULFATE 220 MG CAP PO SCH ×2 (10:41→16:55)
[2020-04-18] MEDS ORDERED: SOD POLYSTYRENE SULFONATE SUSP 15 GM/60 ML BTL PO ONE (11:30)
[2020-04-18] MEDS ORDERED: CALCIUM GLUCONATE 10% INJ 4.65 MEQ in SODIUM CHLORIDE 0.9% 50ML 50 ML IV ONE (11:30)
[2020-04-18] MEDS: ACETAMINOPHEN 325 MG TAB PO PRN (12:53)
[2020-04-18] MEDS ORDERED: DEXTROSE 50% SYRINGE 50 ML IV PRN (14:15)
[2020-04-18 14:57] LABS: FREE T4 (FREE THYROXINE) 1.09 ng/dL (0.8-1.8); THYROID STIMULATING HORMONE 0.381 uIU/mL (0.350-4.940)
--- NOTE | 2020-04-18 15:39 | Consultation ---
DATE OF CONSULTATION: 04/18/2020 Endocrine Consultation Patient of Dr. Ruiz. Thank you very much for referring this patient. HISTORY OF PRESENT ILLNESS: This is a 49-year-old lady, who was referred to me for evaluation of acute hyperglycemia. According to the notes, the patient is not a known diabetic. She came to the hospital with history of cough, chest congestion, was found to have a COVID-19 positive pneumonia and she has been on steroids because of hypoxemia. The patient also developed a sinus bradycardia. The patient is presently on Decadron and her blood sugars are between 250 to 350 range. Her anion gap is normal. PHYSICAL EXAMINATION: GENERAL: The patient is alert, awake. VITAL SIGNS: Her heart rate is around 70, blood pressure 130/80 mmHg. HEENT: Essentially unremarkable. Thyroid is palpable. Clinically, she is near euthyroid. CHEST: Bilateral vesicular breathing. She has bilateral bronchospasm. CARDIAC: First and second heart sound. There is no 3rd or 4th heart sound. Ejection systolic murmur sound grade 2/6. CLINICAL IMPRESSION: Acute hyperglycemia, related to steroids. Rule out diabetes mellitus, COVID-19 positive pneumonia, acute respiratory failure status post. PLAN: At this time is to do hemoglobin A1c thyroid function test and start on insulin drip. Monitor blood sugars closely and increase p.o. intake. MD CAROLINA Jiang/TAMIA /[id number]
--- NOTE | 2020-04-18 16:00 | Progress Note ---
DATE: SUBJECTIVE: The patient still has some pain with inspiration, but is having less cough and less dyspnea. PHYSICAL EXAMINATION: VITAL SIGNS: The blood pressure is 104/65, saturation is 95% on Vapotherm with 20 L and is 60%. HEENT: No facial swelling or erythema. CARDIAC: Regular rate and rhythm with normal S1, S2. LUNGS: Auscultation of the lungs shows crackles at the bases. There is no wheezing. ABDOMEN: Soft, nontender. There is no rebound or guarding. EXTREMITIES: No leg edema or calf tenderness. There is no cyanosis or clubbing. SKIN: No rashes. NEUROLOGICAL: No focal abnormalities. LABORATORY DATA: BUN, creatinine, electrolytes are within normal limits. CBC is within normal limits. IMPRESSION: 1. Acute respiratory failure. 2. Viral pneumonia and coronavirus disease-19 infection. 3. Diabetes. PLAN: 1. Continue to wean Vapotherm. 2. Begin Lantus at night along with subcu insulin as needed during the day. 3. Complete dexamethasone. 4. Continue Lovenox. 5. Continue antibiotics. 6. Wean off Precedex. Yakov Montoya MD [facility]/MODL /[id number]
[2020-04-18] MEDS: INSULIN REGULAR, HUMAN 3ML VL 100 UNIT in SODIUM CHLORIDE 0.9% 99 ML IV SCH ×2 (16:55)
[2020-04-18] MEDS: PANTOPRAZOLE 40 MG 10ML VIAL IV SCH (16:55)
[2020-04-18] MEDS: DEXAMETHASONE SOD PHOS INJ 4 MG/ML VIAL IV SCH (16:55)
--- NOTE | 2020-04-18 18:00 | Progress Note ---
DATE: SUBJECTIVE: Ms. Almaraz is feeling better. She is still having some headache. She is on 20% flow. Looks a bit better. REVIEW OF SYSTEMS: Just headache and shortness of breath. PHYSICAL EXAMINATION: GENERAL: She is currently alert, oriented, obese. VITAL SIGNS: Stable, currently afebrile. HEENT: Not icteric. NECK: Supple. LUNGS: Few crackles. HEART: S1, S2. ABDOMEN: Soft. IMPRESSION AND PLAN: 1. Respiratory failure. 2. Coronavirus disease-19. 3. Obesity. Continue as ordered. Continue to wean as ordered. Discussed with medical team. Anika Dumont MD [facility]/MODL /[id number]
[2020-04-18] MEDS ORDERED: INSULIN GLARGINE 100 UNITS/ML VIAL SQ SCH (21:00)
[2020-04-18] MEDS: ZOLPIDEM TARTRATE 5 MG TAB PO SCH (21:00)
[2020-04-18] MEDS ORDERED: LACTATED RINGER'S 1,000 ML ONE (21:47)
[2020-04-19] VITALS (14 sets, daily range): BP systolic 108–139; BP diastolic 70–108
[2020-04-19] MEDS ORDERED: DEXMEDETOMIDINE 200MCG/NS 50ML 50 ML IV PRN (00:15)
[2020-04-19] MEDS: DEXMEDETOMIDINE 200MCG/NS 50ML 50 ML IV PRN ×2 (00:22→07:12)
[2020-04-19] MEDS: ALBUTEROL SULFATE HFA 8GM INHALATION AEROSOL INH SCH ×4 (01:00→19:00)
[2020-04-19 05:58] LABS: BASOPHILS % 0.2 % (0.0-1.0); EOSINOPHILS % 0.4 % (0.0-6.0); HEMATOCRIT 36.2 % (34.2-44.1); HEMOGLOBIN 12.8 g/dL (12.0-16.0); LYMPHOCYTES % 22.3 % (18.0-39.1); MEAN CORPUSCULAR HGB CONC 35.4 g/dL (31-35); MEAN CORPUSCULAR VOLUME 90.5 fL (81-99); MONOCYTES # (AUTO) 0.4 (0.2-0.8); MONOCYTES % 8.3 % (4.4-11.3); NEUTROPHILS # (AUTO) 3.1 (2.1-6.9); NEUTROPHILS % 68.6 % (38.7-80.0); PLATELET COUNT 296 x10e3/uL (140-360); RED CELL DISTRIBUTION WIDTH 14.2 % (11.7-14.4)
[2020-04-19 06:36] LABS: ALANINE AMINOTRANSFERASE 28 IU/L (0-55); ALBUMIN 2.5 g/dL (3.5-5.0); ALBUMIN/GLOBULIN RATIO 0.7 (0.8-2.0); ALKALINE PHOSPHATASE 45 IU/L (40-150); ANION GAP 11.7 mmol/L (8-16); BLOOD UREA NITROGEN 7 mg/dL (7-26); BUN/CREATININE RATIO 14 (6-25); CALCIUM 9.2 mg/dL (8.4-10.2); CARBON DIOXIDE 28 mmol/L (22-29); CHLORIDE 105 mmol/L (98-107); CREATININE, SERUM 0.49 mg/dL (0.57-1.11); EST GLOMERULAR FILTRATION RATE > 60 ML/MIN (60-); GLUCOSE 143 mg/dL (74-118); POTASSIUM 3.7 mmol/L (3.5-5.1); SODIUM 141 mmol/L (136-145)
--- NOTE | 2020-04-19 07:54 | Diagnostic Imaging Report ---
Examination: Single AP view of the chest. COMPARISON: Portable chest 04/16/2020 INDICATION: Viral pneumonia IMPRESSION: 1. Lines and Tubes: Stable left-sided PICC line. 2. Slight improvement in right upper lobe opacities. Other bilateral patchy airspace opacities are unchanged. 3. Cardiomediastinal silhouette is normal. Pulmonary vasculature is normal. 4. No acute bony abnormalities. Signed by: Dr. Pete Figueroa M.D. on 04/19/2020 7:51 AM
[2020-04-19] MEDS: ASCORBIC ACID 500 MG TAB PO SCH ×2 (09:04→16:51)
[2020-04-19] MEDS: CHOLECALCIFEROL 400 UNIT TAB PO SCH (09:04)
[2020-04-19] MEDS: ZINC SULFATE 220 MG CAP PO SCH ×2 (09:04→16:51)
[2020-04-19] MEDS: LACTATED RINGER'S 1,000 ML INJ SCH ×2 (09:04→15:11)
[2020-04-19] MEDS: INSULIN REGULAR, HUMAN 3ML VL 100 UNIT in SODIUM CHLORIDE 0.9% 99 ML IV SCH ×4 (11:26→16:54)
--- NOTE | 2020-04-19 15:50 | Progress Note ---
DATE: SUBJECTIVE: The patient is having less dyspnea. She is only on 20 L on her Vapotherm. Her FiO2 is set at 55%. PHYSICAL EXAMINATION: VITAL SIGNS: The blood pressure is 129/95 and the saturation is 93%. The pulse is 64. HEENT: Shows no facial swelling or erythema. CARDIAC: Reveals regular rate and rhythm with normal S1 and S2. LUNGS: Auscultation of lungs reveals rhonchorous breath sounds bilaterally. There is no wheezing. ABDOMEN: Soft, nontender. There is no rebound or guarding. EXTREMITIES: Shows no leg edema or calf tenderness. There is no cyanosis or clubbing. SKIN: Shows no rashes. NEUROLOGICAL: Shows no focal abnormalities. LABORATORY DATA: CBC is within normal limits. BUN to creatinine ratio is normal. Other electrolytes are within normal limits. Albumin is 2.5. IMPRESSION: 1. Acute respiratory failure. 2. Viral pneumonia and coronavirus-19 infection. 3. Diabetes. PLAN: 1. We will remove Vapotherm and begin high-flow nasal cannula. 2. Continue to monitor, treat blood sugars. 3. Continue Lovenox. 4. Complete dexamethasone. 5. Complete antibiotics. Yakov Montoya MD [facility]/MODL /[id number]
--- NOTE | 2020-04-19 16:30 | Progress Note ---
DATE: SUBJECTIVE: The patient is seen and evaluated. Discussed with the nurse. The patient is currently comfortable in bed, responds appropriately, tells me the cough is slightly improved. Remains on Vapotherm 20 mL at 55%, also on lactated Ringer and insulin drip. PHYSICAL EXAMINATION: VITAL SIGNS: Temperature 97.9, pulse is 59, respiration 20, and blood pressure 129/98. GENERAL: Alert and oriented, few coughs, no acute distress. CV: S1 and S2. CHEST: Decreased breath sounds. Equal expansion. ABDOMEN: Soft and nontender. HEENT: Moist. No pallor. No JVD. EXTREMITIES: Weak. MEDICATIONS: Reviewed and from ID point of view, the patient is on vitamin D, zinc sulfate, vitamin C, and dexamethasone. LABORATORY STUDIES: White count of 4.57, hemoglobin 12.8, and platelets 296. Sodium 141, potassium 3.7, and creatinine 0.49. LFTs within normal limit. COVID-19 PCR detected on 04/09. Blood culture 04/10, negative. IMAGING: Chest x-ray from today, slight improvement in the right upper lobe opacity. Other bilateral patchy opacities unchanged. ASSESSMENT AND PLAN: 1. COVID-19. 2. Respiratory failure. 3. Obesity. 4. Diabetes. 5. Continue as planned. Monitor the patient. Wean off oxygen. Further management of this patient is based on daily findings on laboratory and physical examination. Dictated by Jose Capellan PA-C (Al) Anika Dumont MD /MODL /[id number]
[2020-04-19] MEDS: PANTOPRAZOLE 40 MG 10ML VIAL IV SCH (16:51)
[2020-04-19] MEDS: DEXAMETHASONE SOD PHOS INJ 4 MG/ML VIAL IV SCH (16:51)
[2020-04-19] MEDS ORDERED: LACTATED RINGER'S 1,000 ML ONE (18:02)
[2020-04-19] MEDS: ZOLPIDEM TARTRATE 5 MG TAB PO SCH (20:46)
[2020-04-20] VITALS (12 sets, daily range): BP systolic 98–165; BP diastolic 65–90
[2020-04-20] MEDS: ALBUTEROL SULFATE HFA 8GM INHALATION AEROSOL INH SCH ×4 (01:00→20:30)
[2020-04-20] MEDS ORDERED: DEXMEDETOMIDINE HCL 200 MCG in SODIUM CHLORIDE 0.9% 50ML 48 ML IV PRN (01:15)
[2020-04-20] MEDS ORDERED: INSULIN GLARGINE 100 UNITS/ML VIAL SQ ONE (03:30)
[2020-04-20] MEDS ORDERED: DEXTROSE 50% SYRINGE 50 ML IV PRN (03:30)
--- NOTE | 2020-04-20 04:30 | NUR ---
RECEIVED PATIENT FROM ICU IN STABLE CONDITION, NO SIGNS OF DISTRESS NOTED. IV FLUIDS ARE RUNNING AT ORDERED RATE AND PATIENT VOICES NO PAIN AT THIS TIME. NASAL CANNULA IS RUNNING AT 4 LITERS AND IS PATENT AND FLOWING. BED IS IN LOWEST POSITION, BOTH SIDE RAILS ARE UP, CALL LIGHT IS WITHIN EASY REACH, WILL CONTINUE TO MONITOR.
[2020-04-20] MEDS: LACTATED RINGER'S 1,000 ML INJ SCH (04:57)
[2020-04-20 05:19] LABS: BASOPHILS % 0.2 % (0.0-1.0); EOSINOPHILS % 0.2 % (0.0-6.0); HEMATOCRIT 39.2 % (34.2-44.1); HEMOGLOBIN 13.1 g/dL (12.0-16.0); LYMPHOCYTES # (AUTO) 1.3 (1.0-3.2); LYMPHOCYTES % 23.5 % (18.0-39.1); MEAN CORPUSCULAR HEMOGLOBIN 28.8 pg (28-32); MEAN CORPUSCULAR HGB CONC 33.4 g/dL (31-35); MEAN CORPUSCULAR VOLUME 86.2 fL (81-99); MONOCYTES # (AUTO) 0.4 (0.2-0.8); MONOCYTES % 7.7 % (4.4-11.3); NEUTROPHILS # (AUTO) 3.8 (2.1-6.9); PLATELET COUNT 377 x10e3/uL (140-360); RED BLOOD COUNT 4.55 x10e6/uL (3.6-5.1); RED CELL DISTRIBUTION WIDTH 12.6 % (11.7-14.4)
[2020-04-20 05:39] LABS: ALANINE AMINOTRANSFERASE 31 IU/L (0-55); ALBUMIN 2.8 g/dL (3.5-5.0); ALBUMIN/GLOBULIN RATIO 0.8 (0.8-2.0); ALKALINE PHOSPHATASE 50 IU/L (40-150); ANION GAP 12.6 mmol/L (8-16); BLOOD UREA NITROGEN 7 mg/dL (7-26); BUN/CREATININE RATIO 14 (6-25); CALCIUM 9.2 mg/dL (8.4-10.2); CARBON DIOXIDE 26 mmol/L (22-29); CHLORIDE 105 mmol/L (98-107); EST GLOMERULAR FILTRATION RATE > 60 ML/MIN (60-); GLUCOSE 141 mg/dL (74-118); POTASSIUM 3.6 mmol/L (3.5-5.1); SODIUM 140 mmol/L (136-145)
--- NOTE | 2020-04-20 10:24 | Progress Note ---
DATE: 04/15/2020 SUBJECTIVE: The patient complains of low back pain and lower abdominal pain as well as headache. She remains in the ICU bed 193. OBJECTIVE: VITAL SIGNS: Temperature 98.6, heart rate 72, blood pressure 139/76, respirations 20, and oxygen saturation 97%. GENERAL: Supine. LUNGS: With rhonchi and crackles bilaterally. No wheezing. Currently on Vapotherm 35 L/minute, FiO2 of 70%. HEENT: EOMI. NECK: Supple. No JVD. CARDIOVASCULAR: Regular rate and rhythm. No murmur. ABDOMEN: Bowel sounds positive. Soft and nontender. No guarding. EXTREMITIES: Without pitting edema. No clubbing, cyanosis, or marked swelling. Signs of DVT. LABORATORY DATA: WBC is low at 4.10, hemoglobin 13.4, hematocrit 40.1, and platelets 354. Sodium 139, potassium 3.9, chloride 103, CO2 27, BUN 8, creatinine 0.55, estimated GFR greater than 60, glucose 248, and calcium 9.4. Fingerstick blood glucose level 165. Ultrasound of the abdomen was normal. Chest x-ray today showed unchanged bilateral lower lung predominant patchy airspace opacities consistent with pneumonia. ASSESSMENT AND PLAN: 1. Acute respiratory failure. Wean Vapotherm to high-flow nasal cannula as tolerated. 2. Multifocal viral community-acquired pneumonia due to COVID-19, POA. Continue dexamethasone, Rocephin, azithromycin, Lovenox, albuterol, zinc sulfate, vitamin C, vitamin D, Robitussin, and codeine. 3. Obesity with BMI of 35.02. Maintain nutritional support with ADA diet. 4. Prophylaxis. Lovenox and Pepcid. 5. Billing code 50753. Time spent 35 minutes. Dictated by Obi Cordova NP MD DEEPA TorresP/MODL /[id number]
[2020-04-20] MEDS: ASCORBIC ACID 500 MG TAB PO SCH ×2 (10:31→17:23)
[2020-04-20] MEDS: CHOLECALCIFEROL 400 UNIT TAB PO SCH (10:31)
[2020-04-20] MEDS: ZINC SULFATE 220 MG CAP PO SCH ×2 (10:31→17:23)
--- NOTE | 2020-04-20 10:50 | Progress Note ---
DATE: CONSULTING PHYSICIANS: 1. Anika Dumont MD. 2. Yakov Montoya MD, with Pulmonology/Critical Care Medicine. 3. Blaine Montoya MD, with Cardiology. SUBJECTIVE: The patient is prone, remains on Vapotherm. OBJECTIVE: VITAL SIGNS: Temperature 98.2, heart rate 68, blood pressure 143/94, respirations 22, oxygen saturation 91%. General: Prone. LUNGS: Bibasilar crackles. Currently, on Vapotherm 40 L/minute, FiO2 of 70%. HEENT: EOMI. NECK: Supple. CARDIOVASCULAR: Regular rate and rhythm. No murmur. ABDOMEN: Bowel sounds positive. Soft, nontender. No guarding. EXTREMITIES: Without pitting edema. No clubbing, cyanosis, or marked swelling. NEUROLOGICAL: GCS 15. Nonfocal. LABORATORY DATA: WBCs 3.6, hemoglobin 13.5, hematocrit 41.3, platelets 322. Sodium 139, potassium 3.9, chloride 102, CO2 of 24, anion gap 16.9, BUN 7, creatinine 0.57, estimated GFR greater than 60, glucose 253, calcium 9.7, total bilirubin 0.5, AST 20, ALT 48, alkaline phosphatase 65, total protein 7.1, albumin 2.9, phosphorus 4.1, magnesium 1.9. Fingerstick blood glucose level 223. Chest x-ray shown extensive multifocal airspace disease/pneumonia. New left upper extremity PICC line tip terminates at the cavoatrial junction. That was done early this morning. Followup chest x-ray showed unchanged bilateral airspace opacities, which could be due to multifocal pneumonia, ARDS or pulmonary edema. ASSESSMENT AND PLAN: 1. Acute respiratory failure. Wean Vapotherm to high-flow nasal cannula as tolerated. 2. Multifocal viral community-acquired pneumonia due to coronavirus disease-2019, present on admission. Continue dexamethasone, azithromycin, Rocephin, vitamin C, vitamin D, zinc sulfate, albuterol, Lovenox, Robitussin with codeine. 3. Hypoalbuminemia. Continue ADA diet for nutritional support. 4. Chronic low back pain. Pain control. Prone position when tolerated. 5. Prophylaxis. Lovenox and Pepcid. Billing code [id number]. Time spent 35 minutes. Dictated by Obi Cordova NP MD THEODORA Torres/TAMIA /[id number]
--- NOTE | 2020-04-20 12:05 | Progress Note ---
DATE: 04/16/2020 SUBJECTIVE: Per the nurse, the patient complains of pain on the right side when coughing. She ate dinner yesterday, but has a poor appetite. Toradol 15 mg IV every 6 hours has been added for p.r.n. pain order. The patient is supine. OBJECTIVE: VITAL SIGNS: Temperature 98.6, heart rate 63, blood pressure 159/80, respirations 29, and oxygen saturation is 100%. GENERAL: Supine. LUNGS: With rhonchi and bibasilar crackles. Currently, on Vapotherm 20 L/minute, FiO2 of 65%. HEENT: EOMI. NECK: Supple. CARDIOVASCULAR: Regular rate and rhythm without murmur. She has a left upper extremity PICC line with LR at 100 mL an hour. ABDOMEN: Bowel sounds positive. Soft, nontender. No guarding. EXTREMITIES: Without pitting edema. No clubbing, cyanosis, or marked swelling or signs of DVT. NEUROLOGICAL: No focal abnormalities. She is sedated with Precedex. LABORATORY DATA: WBCs 5.76, hemoglobin 12.8, hematocrit 39, platelets 381, neutrophils 67.5%. Sodium 141, potassium 3.3, chloride 104, CO2 28, anion gap 12.3, BUN 5, creatinine 0.51, estimated GFR greater than 60, glucose 186. Fingerstick blood glucose level 171. Calcium 8.7, phosphorus 3.3, magnesium 1.5, total bilirubin 0.5, AST 13, ALT 31, alkaline phosphatase 49, total protein 6, albumin 2.4. Ultrasound of the abdomen is normal. Chest x-ray showed unchanged bilateral lower lung predominantly patchy airspace opacities consistent with pneumonia. ASSESSMENT/PLAN: 1. Acute respiratory failure. Continue to attempt to wean Vapotherm to high-flow nasal cannula as tolerated. Currently weaned down to 20 L/minute with FiO2 of 65%. 2. Multifocal viral community-acquired pneumonia due to coronavirus disease-2019, present on admission. Continue dexamethasone. The patient is sedated with Precedex. Antibiotics have been discontinued. Continue Lovenox, zinc sulfate, vitamin C, vitamin D, albuterol. 3. Acute hypomagnesemia. Magnesium level 1.5, repleted with 2 g of magnesium sulfate IV. 4. Acute hypokalemia. Potassium level 3.3, replace with 40 mEq potassium chloride IV. 5. Possible cholecystitis. Ultrasound of the abdomen within normal limits. 6. Prophylaxis. Pepcid and Lovenox. Billing code [id number]. Time spent 35 minutes. Dictated by Obi Cordova, DEADENER MD DEEPA TorresP/MODL /[id number]
--- NOTE | 2020-04-20 12:23 | NUR ---
Received order to arrange home oxygen. Spoke to pt with [employer] [facility]. Discussed self pay prices. Gave choice for [facility]. Signed choice letter placed in front of chart. Referral was faxed to [facility] at [phone] / Ross with [facility] was notified of referral. Will let CM know once payment received to deliver portable.
[2020-04-20] MEDS: INSULIN REGULAR, HUMAN 100 UNIT/1 ML 3ML VIAL SQ SCH ×4 (12:30→20:43)
[2020-04-20] MEDS: ONDANSETRON HCL INJ 2MG/ML 2ML 2 MG/ML VIAL IV PRN (13:01)
[2020-04-20] MEDS ORDERED: PROMETHAZINE 12.5MG/ NACL 0.9% 12.5 MG/50 ML BAG IV PRN (14:30)
[2020-04-20] MEDS ORDERED: PROMETHAZINE 12.5MG/ NACL 0.9% 12.5 MG/50 ML BAG IV ONE (14:30)
--- NOTE | 2020-04-20 15:11 | Progress Note ---
DATE: SUBJECTIVE: The patient is complaining of nausea. She has some difficulty eating. She is using less oxygen. She is down to 4 L. PHYSICAL EXAMINATION: VITAL SIGNS: Blood pressure is 142/85, saturation is 97% on 4 L. HEENT: No facial swelling or erythema. CARDIAC: Regular rate and rhythm with normal S1, S2. LUNGS: Auscultation of lungs reveals rhonchorous breath sounds bilaterally. There is no wheezing. ABDOMEN: Soft, nontender. There is no rebound or guarding. EXTREMITIES: No leg edema or calf tenderness. There is no cyanosis or clubbing. IMPRESSION: 1. Acute respiratory failure. 2. Viral pneumonia and coronavirus disease-19 infection. 3. Diabetes. PLAN: 1. Continue to wean oxygen. 2. Out of bed as tolerated. 3. Continue to monitor and treat blood sugars. 4. Complete dexamethasone. 5. Symptomatic treatment for nausea. Yakov Montoya MD [facility]/MODL /[id number]
--- NOTE | 2020-04-20 17:17 | Progress Note ---
DATE: SUBJECTIVE: Ms. Almaraz is doing better today, there is no new complaint. PHYSICAL EXAMINATION: GENERAL: Currently, alert and oriented, does not seem to be in acute distress. VITAL SIGNS: Stable, currently afebrile. HEENT: Not icteric. NECK: Supple. CHEST: Clear. HEART: S1, S2. No S3, S4, or murmurs. ABDOMEN: Soft. Bowel sounds present. EXTREMITIES: No edema. ASSESSMENT AND PLAN: The patient is on Vapotherm, but weaning slowly. COVID-19 improving. The patient day #9 of antibiotic, to finish 10 days of Decadron. Continue Lovenox. Continue to wean her off. Continue with diabetic control. We will follow. Anika Dumont MD [facility]/MODL /[id number]
[2020-04-20] MEDS: PANTOPRAZOLE SOD 40 MG TABEC PO SCH (17:23)
[2020-04-20] MEDS: DEXAMETHASONE SOD PHOS INJ 4 MG/ML VIAL IV SCH (17:32)
--- NOTE | 2020-04-20 17:34 | NUR ---
Spoke with Ross Jett who states CM can deliver portable oxygen. Portable tank given to [facility] to give to pt.
[2020-04-20] MEDS: ZOLPIDEM TARTRATE 5 MG TAB PO SCH (20:30)
--- NOTE | 2020-04-20 20:30 | NUR ---
PATIENT IN STABLE CONDITION, VOICES PAIN AT A LEVEL OF 10 IN ABDOMEN. CALL PLACED TO PHYSICIAN AND STAT KUB AND SIMETHICONE WAS ORDERED FOR PATIENT. IV FLUIDS ARE RUNNING AT ORDERED RATE AND NASAL CANNULA IS RUNNING AT 3 LITERS WITH O2 SAT AT 91. BED IS IN LOWEST POSITION, BOTH SIDE RAILS ARE UP, CALL LIGHT IS WITHIN EASY REACH, WILL CONTINUE TO MONITOR.
[2020-04-20] MEDS: SIMETHICONE 80 MG CHEW PO ONE ×2 (20:56→21:47)
--- NOTE | 2020-04-20 21:18 | NUR ---
RADIOLOGY HAS COME TO DO KUB OF ABDOMEN FOR PATIENT.
--- NOTE | 2020-04-20 21:55 | Diagnostic Imaging Report ---
Exam: Supine Abdominal film Clinical History: Midabdominal pain Comparison: None. DISCUSSION: Frontal view of the abdomen shows a nonobstructive bowel gas pattern with moderate amount of retained stool.There are no dilated, air-filled loops of bowel. There are no abnormal calcifications. 1.2 cm peripherally calcified sclerotic focus projecting of the right iliac crest likely represents an injection granuloma in the gluteal region. No aggressive lytic lesions. IMPRESSION: 1. Nonobstructive bowel gas pattern with moderate amount retained stool.. The staff physician below has personally reviewed this exam on the date of dictation. Signed by: Dr. Pete Figueroa M.D. on 04/20/2020 9:52 PM
[2020-04-20] MEDS ORDERED: SIMETHICONE 80 MG CHEW PO ONE (22:00)
[2020-04-21] VITALS (8 sets, daily range): BP systolic 104–138; BP diastolic 59–87
[2020-04-21] MEDS: LACTATED RINGER'S 1,000 ML INJ SCH (00:44)
[2020-04-21] MEDS: ALBUTEROL SULFATE HFA 8GM INHALATION AEROSOL INH SCH ×4 (00:44→19:00)
[2020-04-21] MEDS: ACETAMINOPHEN 325 MG TAB PO PRN ×3 (00:55→20:07)
--- NOTE | 2020-04-21 04:15 | NUR ---
INDWELLING COELHO CATHETER REMOVED FROM PATIENT ORDERED. PATIENT TOLERATED WELL.
[2020-04-21 04:39] LABS: HEMATOCRIT 39.1 % (34.2-44.1); HEMOGLOBIN 12.9 g/dL (12.0-16.0); LYMPHOCYTES # (AUTO) 1.1 (1.0-3.2); LYMPHOCYTES % 20.5 % (18.0-39.1); MEAN CORPUSCULAR HEMOGLOBIN 28.6 pg (28-32); MEAN CORPUSCULAR VOLUME 86.7 fL (81-99); MONOCYTES # (AUTO) 0.3 (0.2-0.8); MONOCYTES % 5.6 % (4.4-11.3); NEUTROPHILS # (AUTO) 4.1 (2.1-6.9); NEUTROPHILS % 73.5 % (38.7-80.0); PLATELET COUNT 350 x10e3/uL (140-360); RED BLOOD COUNT 4.51 x10e6/uL (3.6-5.1); RED CELL DISTRIBUTION WIDTH 12.8 % (11.7-14.4)
[2020-04-21 04:56] LABS: ALANINE AMINOTRANSFERASE 30 IU/L (0-55); ALBUMIN 2.9 g/dL (3.5-5.0); ALBUMIN/GLOBULIN RATIO 0.9 (0.8-2.0); ALKALINE PHOSPHATASE 49 IU/L (40-150); ANION GAP 12.6 mmol/L (8-16); BLOOD UREA NITROGEN 5 mg/dL (7-26); BUN/CREATININE RATIO 10 (6-25); CALCIUM 9.1 mg/dL (8.4-10.2); CARBON DIOXIDE 27 mmol/L (22-29); CHLORIDE 104 mmol/L (98-107); EST GLOMERULAR FILTRATION RATE > 60 ML/MIN (60-); GLUCOSE 175 mg/dL (74-118); POTASSIUM 3.6 mmol/L (3.5-5.1); SODIUM 140 mmol/L (136-145)
[2020-04-21] MEDS ORDERED: SIMETHICONE 80 MG CHEW PO PRN (06:15)
--- NOTE | 2020-04-21 06:15 | NUR ---
PATIENT SUCCESSFULLY TRANSFERRED TO ROOM 297 SAFELY. PATIENT SHOWS NO DISTRESS AND IS IN STABLE CONDITION. REPORT GIVEN BRIAN LIMON.
--- NOTE | 2020-04-21 07:00 | NUR ---
RECEIVED REPORT FROM PM RN. PT IS ALERT RESTING IN BED, NO S/S OF DISTRESS. PT C/O PAIN BLE. CALL LIGHT WITHIN REACH AND INSTRUCTED PT TO CALL RN FOR HELP
--- NOTE | 2020-04-21 07:05 | NUR ---
change of shift report given to day nurse.
[2020-04-21] MEDS: ZINC SULFATE 220 MG CAP PO SCH ×2 (09:30→17:08)
[2020-04-21] MEDS: CHOLECALCIFEROL 400 UNIT TAB PO SCH (09:30)
[2020-04-21] MEDS: ASCORBIC ACID 500 MG TAB PO SCH ×2 (09:30→17:08)
[2020-04-21] MEDS: INSULIN REGULAR, HUMAN 100 UNIT/1 ML 3ML VIAL SQ SCH ×4 (09:44→21:54)
--- NOTE | 2020-04-21 10:54 | NUR ---
Zenaida Becerril, AUT[employer] SPECIALIST making rounds. plan is to d/c patient home tomorrow 04/22/20. accurate recording of o2 needs to be logged overnight per [employer]IST. RN to ask Dr. Pat to leave prescriptions for new DM meds
[2020-04-21] MEDS: GABAPENTIN 100 MG CAP PO SCH ×2 (12:22→17:07)
[2020-04-21] MEDS: DEXAMETHASONE SOD PHOS INJ 4 MG/ML VIAL IV SCH (17:07)
[2020-04-21] MEDS: PANTOPRAZOLE SOD 40 MG TABEC PO SCH (17:07)
--- NOTE | 2020-04-21 17:42 | Progress Note ---
DATE: SUBJECTIVE: The patient is still feeling fatigued. She is down to 3 L of oxygen. She is not complaining of chest pain. She has no nausea or vomiting. PHYSICAL EXAMINATION: VITAL SIGNS: The blood pressure is 107/59, saturation is 97% on 3 L, and the pulse is 81. HEENT: No facial swelling or erythema. LYMPHATIC: No submandibular, cervical, or supraclavicular adenopathy. CARDIAC: Regular rate and rhythm with normal S1, S2. LUNGS: Auscultation of lungs reveals crackles at the bases. There is no wheezing. ABDOMEN: Soft, nontender. There is no rebound or guarding. EXTREMITIES: No leg edema or calf tenderness. LABORATORY DATA: CBC is within normal limits. BUN to creatinine is normal and electrolytes are within normal limits. IMPRESSION: 1. Acute respiratory failure. 2. Viral pneumonia and coronavirus disease-19 infection. 3. Diabetes. PLAN: 1. Continue to wean oxygen. 2. Continue to monitor and treat blood sugars. 3. Complete dexamethasone. 4. Out of bed as tolerated. 5. Discussed disposition with Case Management and Dr. Ruiz. Yakov Montoya MD [facility]/MODL /[id number]
--- NOTE | 2020-04-21 17:57 | Progress Note ---
DATE: SUBJECTIVE: Ms. Almaraz is doing better with no new complaints. PHYSICAL EXAMINATION: GENERAL: She is currently alert, oriented. VITAL SIGNS: Stable. Currently afebrile. HEENT: She is not icteric. NECK: Supple. CHEST: Clear. Heart: S1, S2. ABDOMEN: Soft. IMPRESSION: Respiratory failure, improved, coronavirus disease-19. The patient will be discharged home with oxygen, Ventolin inhaler low dose of Eliquis for 60 days. Continue all home medication. Follow up in 3 weeks. The patient can discontinue isolation in 2 weeks from now. MD MAXIMILIAN Black/MODL /[id number]
[2020-04-21] MEDS: ZOLPIDEM TARTRATE 5 MG TAB PO SCH (20:07)
[2020-04-21] MEDS ORDERED: INSULIN GLARGINE 100 UNITS/ML VIAL SQ SCH (21:00)
[2020-04-22] VITALS: BP 119/79
[2020-04-22] MEDS: ALBUTEROL SULFATE HFA 8GM INHALATION AEROSOL INH SCH (01:00)
[2020-04-22 04:00] VITALS: BP 93/71
[2020-04-22 05:46] LABS: BASOPHILS % 0.2 % (0.0-1.0); EOSINOPHILS % 0.2 % (0.0-6.0); LYMPHOCYTES # (AUTO) 1.7 (1.0-3.2); LYMPHOCYTES % 27.1 % (18.0-39.1); MEAN CORPUSCULAR HEMOGLOBIN 28.6 pg (28-32); MEAN CORPUSCULAR HGB CONC 32.4 g/dL (31-35); MEAN CORPUSCULAR VOLUME 88.1 fL (81-99); MONOCYTES # (AUTO) 0.5 (0.2-0.8); MONOCYTES % 7.4 % (4.4-11.3); NEUTROPHILS % 64.6 % (38.7-80.0); PLATELET COUNT 342 x10e3/uL (140-360); RED CELL DISTRIBUTION WIDTH 13.1 % (11.7-14.4)
--- NOTE | 2020-04-22 06:00 | NUR ---
patients O2 saturation was 100% on 5L of oxygen throughout the night. Oxygen saturation has been lowered to 4L in accordance with plan of care.
[2020-04-22 06:20] LABS: ALANINE AMINOTRANSFERASE 31 IU/L (0-55); ALBUMIN 2.8 g/dL (3.5-5.0); ALBUMIN/GLOBULIN RATIO 0.9 (0.8-2.0); ALKALINE PHOSPHATASE 44 IU/L (40-150); ANION GAP 10.6 mmol/L (8-16); BLOOD UREA NITROGEN 6 mg/dL (7-26); BUN/CREATININE RATIO 12 (6-25); CALCIUM 9.1 mg/dL (8.4-10.2); CARBON DIOXIDE 29 mmol/L (22-29); CHLORIDE 104 mmol/L (98-107); CREATININE, SERUM 0.51 mg/dL (0.57-1.11); EST GLOMERULAR FILTRATION RATE > 60 ML/MIN (60-); GLUCOSE 130 mg/dL (74-118); POTASSIUM 3.6 mmol/L (3.5-5.1); SODIUM 140 mmol/L (136-145)
--- NOTE | 2020-04-22 07:00 | NUR ---
received report from pm RN. pt is sleeping in bed, no s/s of distress. call light within reach
--- NOTE | 2020-04-22 07:02 | NUR ---
report given to day nurse.
[2020-04-22] MEDS: INSULIN REGULAR, HUMAN 100 UNIT/1 ML 3ML VIAL SQ SCH (07:30)
[2020-04-22] MEDS ORDERED: PROAIR HFA INH8.5 GM INH (07:46)
[2020-04-22] MEDS ORDERED: DEXAMETHASONE4 MG PO (07:46)
[2020-04-22] MEDS ORDERED: ASPIRIN ENTERI325 MG PO (07:46)
[2020-04-22] MEDS ORDERED: GLIPIZIDE5 MG PO ×2 (07:52→08:21)
[2020-04-22] MEDS ORDERED: METFORMIN HCL500 MG PO ×2 (07:52→08:21)
[2020-04-22] MEDS ORDERED: GABAPENTIN100 MG PO (07:54)
[2020-04-22] MEDS: ASCORBIC ACID 500 MG TAB PO SCH (08:23)
[2020-04-22] MEDS: CHOLECALCIFEROL 400 UNIT TAB PO SCH (08:23)
[2020-04-22] MEDS: ZINC SULFATE 220 MG CAP PO SCH (08:23)
[2020-04-22] MEDS: GABAPENTIN 100 MG CAP PO SCH (08:23)
[2020-04-22] MEDS ORDERED: GLUCOMETER SQ ×3 (08:26→08:29)
[2020-04-22 08:29] VITALS: BP 123/79
[2020-04-22 09:25] VITALS: BP 123/79
--- NOTE | 2020-04-23 17:31 | Discharge Summary ---
ADMISSION DIAGNOSES: COVID-19 pneumonia with acute respiratory failure due to hypoxia, metabolic acidosis, transaminitis. DISCHARGE DIAGNOSES: Pain/new onset diabetes, rule out bacteremia, rule out congestive heart failure. HISTORY: None. SURGICAL HISTORY: . FAMILY HISTORY: Noncontributory. SOCIAL HISTORY: Noncontributory. HOSPITAL COURSE: A 49-year-old female admits for worsening cough and dyspnea. The patient has apparently been sick for about 11 days. On admission, chest x-ray showed findings of bronchitis, bilateral lower lung haziness concerning for multifocal pneumonia. Her COVID came back positive. Echo showed an EF of 55% to 60% with a normal diastolic pattern. Blood cultures were negative. A1c came back at 12.7. The patient was unaware she was a diabetic. The patient was started on IV antibiotics for superimposed bacterial pneumonia per ID recommendation. The patient was also given Lovenox and vitamin. The patient's respiratory status steadily improved during hospitalization. Prior to discharge, she complained of bilateral lower extremity pain, it was presumed to be neuropathy, but a venous Doppler was done, which was negative. She was discharged home with new prescriptions for albuterol HFA, aspirin, dexamethasone, gabapentin, glipizide, and metformin. She was advised that given her A1c, insulin would be the best medication for her, but she refused. She said she wanted to start with tablets and fix her diet instead. She was advised to follow up with primary care in 3 months to repeat her A1c. The patient understands instructions and agrees to plan. She was given oxygen prior to discharge and instructed to return to the ER if shortness of breath worsens. She will follow up with primary care and Dr. Dumont in 1 to 2 weeks. The patient understands instructions and agrees to plan. Dictated by Zenaida Becerril NP MD MAURA Torres/MODL /[id number]
== END 2020-04-22 11:55 | disposition home or self-care (01) | DRG 177 ==
LOC: ER 18:50 → ERHOLD 04-10 07:40 → ICU 04-10 21:30 → OBSVTOIN 04-11 08:16 → IMCU 04-20 04:02 → MED/SURG3 04-21 06:17
PROVIDERS: ADMIT Internal Medicine; ATTEND Internal Medicine
PROC: 02HV33Z Insertion of Infusion Device into Superior Vena Cava, Percutaneous Approach (ICD-10-PCS; principal; 2020-04-14)
DX: U07.1 COVID-19 (principal); J12.9 Viral pneumonia, unspecified; J96.01 Acute respiratory failure with hypoxia; E87.2 Acidosis; R74.0 Nonspecific elevation of levels of transaminase and lactic acid dehydrogenase [LDH]; E11.65 Type 2 diabetes mellitus with hyperglycemia; E78.00 Pure hypercholesterolemia, unspecified; D72.819 Decreased white blood cell count, unspecified; G89.29 Other chronic pain; M54.5 Low back pain; E66.9 Obesity, unspecified; Z68.35 Body mass index [BMI] 35.0-35.9, adult; R00.1 Bradycardia, unspecified; E11.40 Type 2 diabetes mellitus with diabetic neuropathy, unspecified; E83.42 Hypomagnesemia; E87.6 Hypokalemia; K80.80 Other cholelithiasis without obstruction
CPT/HCPCS: 36415; 36569; 36600; 51700; 71045; 74018; 76700; 80048; 80053; 80307; 81001; 81025; 82550; 82553; 82805; 82948; 83036; 83605; 83735; 83880; 84100; 84439; 84443; 84484; 85025; 87040; 93005; 93306; 93970; 94664; 96372; 99285; G0378; J0360; J0456; J0610; J0696; J1100; J1650; J1815; J1817; J1885; J2405; J2543; J2550; J2930; J3475; J3480; J7030; J7050; J7121; P9047; U0002